=== PATIENT | male | born 1935 | race Caucasian/White ===

== ENCOUNTER 2021-08-15 15:22 | Emergency (ER) | payer MEDICARE, OTHER ==
[~2021-08-15] VITALS: Ht 188 cm; Wt 90.7 kg
--- NOTE | 2021-08-15 15:30 | NUR ---
PT BIBS C/O FOREHEAD LACERATION S/P GLF AT HOME "GOT DIZZY FROM STANDING UP TOO FAST", -LOC, DENIES PAIN, NOT ON ANY BLOOD THINNERS. NO ACTIVE BLEEDING AT THIS TIME. PT A/OX4. TOLERATING R/A WELL WITH NO SOB.
--- NOTE | 2021-08-15 15:31 | NUR ---
NO ABNORMAL EXTERNAL ROTATION, SHORTENING OF EXTREMITITES NOTED.
[2021-08-15] MEDS ORDERED: LIDOCAINE 0.5%-EPI 1:200,000 50 ML VIAL ONE (15:52)
--- NOTE | 2021-08-15 15:57 | NUR ---
PT TAKEN TO CT VIA PRIYANK
[2021-08-15] MEDS ORDERED: TDAP [DIPH/PERTUSSIS/TET] 0.5 ML VIAL IM ONE ×2 (16:00→16:07)
--- NOTE | 2021-08-15 16:04 | NUR ---
PT RETURNED TO ER BED [address] PRIYANK
--- NOTE | 2021-08-15 17:10 | NUR ---
LAW OLEA AT PT'S BEDSIDE DOING WOUND CARE
[2021-08-15 18:00] VITALS: BP 152/86
--- NOTE | 2021-08-15 18:00 | NUR ---
Patient discharged to home in stable condition. Written and verbal after care instructions given. Patient verbalizes understanding of instruction.
== END 2021-08-15 18:00 | disposition home or self-care (01) ==
LOC: ER 15:30
DX: S01.81XA Laceration without foreign body of other part of head, initial encounter (principal); S01.01XA Laceration without foreign body of scalp, initial encounter; Z90.49 Acquired absence of other specified parts of digestive tract; W19.XXXA Unspecified fall, initial encounter; Y93.89 Activity, other specified; Y92.89 Other specified places as the place of occurrence of the external cause; Y99.8 Other external cause status
CPT/HCPCS: 12002; 12013; 70450; 72125; 90471; 90715; 99284; A6403; J3490

== ENCOUNTER 2022-06-17 12:38 | Inpatient (IN) | payer MEDICARE, OTHER ==
[~2022-06-17] VITALS: Ht 172.7 cm; Wt 91.6 kg
--- NOTE | 2022-06-17 12:50 | NUR ---
C/O LOWER BACK PAIN,GLF 2 DAYS AGO
--- NOTE | 2022-06-17 13:10 | NUR ---
pt taken to ct via bridget
[2022-06-17] MEDS ORDERED: HYDROCODONE/APAP 5/325MG TABLET PO ONE (13:30)
--- NOTE | 2022-06-17 13:30 | NUR ---
tech at bed side for ekg
--- NOTE | 2022-06-17 13:30 | NUR ---
established iv line at left forearm 20g infusing ,
--- NOTE | 2022-06-17 13:31 | NUR ---
blood sample obtained sent to lab .
--- NOTE | 2022-06-17 13:32 | NUR ---
PLACED ON O2 VIA NASAL CANULA AT 3L/MIN SATURATING 95%
[2022-06-17] MEDS ORDERED: HYDROCODONE/APAP 5/325MG TABLET ONE (13:51)
[2022-06-17 13:59] LABS: BASOPHILS % (AUTO) 0.4 % (0.0-2.0); EOSINOPHILS % (AUTO) 0.3 % (0.0-6.0); HEMATOCRIT 26 % (39-51); HEMOGLOBIN 8.7 g/dL (13.5-17.5); LYMPHOCYTES # (AUTO) 0.9 K/uL (0.8-4.8); LYMPHOCYTES % (AUTO) 15.3 % (20.0-44.0); MEAN CORPUSCULAR HGB CONC 34 g/dl (31.0-36.0); MEAN CORPUSCULAR VOLUME 113 fL (80-96); MONOCYTES % (AUTO) 18.4 % (2.0-12.0); NEUTROPHILS # (AUTO) 3.7 K/uL (1.8-8.9); NEUTROPHILS % (AUTO) 65.6 % (43.0-81.0); PLATELET COUNT (AUTO) 98 K/uL (150-450); RED BLOOD CELL COUNT(AUTO) 2.27 MIL/uL (4.5-6.0); WHITE BLOOD COUNT (AUTO) 5.7 K/uL (4.3-11.0)
[2022-06-17 14:11] LABS: CALCIUM, SERUM 8.3 mg/dL (8.5-10.1); CARBON DIOXIDE 27 mmol/L (21-32); CHLORIDE 104 mmol/L (98-107); CREATININE 1.4 mg/dL (0.6-1.3); GLUCOSE 92 mg/dL (74-106); POTASSIUM 3.6 mmol/L (3.5-5.1); SODIUM SERUM 139 mmol/L (136-145); UREA NITROGEN, BLOOD 25 mg/dL (7-18)
--- NOTE | 2022-06-17 14:25 | NUR ---
TROPONIN LEVEL = 401 REPORTED TO
--- NOTE | 2022-06-17 14:33 | NUR ---
DR. MARCIAL SPEAKING WITH DR. WELLS.
--- NOTE | 2022-06-17 15:04 | NUR ---
COVID SWAB TAKEN SENT TO LAB
[2022-06-17] MEDS ORDERED: ASPI-1169 PO (15:05)
[2022-06-17] MEDS ORDERED: ATOR20TA PO (15:05)
[2022-06-17] MEDS ORDERED: FERR325T23 PO (15:05)
[2022-06-17] MEDS ORDERED: OMEP-99 PO (15:05)
[2022-06-17] MEDS ORDERED: PRED5TAB PO (15:05)
[2022-06-17] MEDS ORDERED: IRBE150T28 PO (15:05)
[2022-06-17] MEDS ORDERED: TRIA1TAB3 PO (15:05)
[2022-06-17 16:16] LABS: BAND % (MANUAL) 4 % (0.0-5.0); LYMPHOCYTES % (MANUAL) 17 % (16-48); MONOCYTES % (MANUAL) 9 % (0-11.0); NEUTROPHILS % (MANUAL) 70 (42-76)
--- NOTE | 2022-06-17 16:20 | NUR ---
GOT BED 308-1
--- NOTE | 2022-06-17 17:08 | NUR ---
PT REPORT GIVEN TO THALIA RAMOS
--- NOTE | 2022-06-17 18:17 | NUR ---
CANCEL TRANSFER TO 308
[2022-06-17] MEDS ORDERED: ONDANSETRON HCL/PF 4 MG/2 ML VIAL IVP PRN (18:30)
[2022-06-17] MEDS ORDERED: MAGNESIUM HYDROXIDE 30 ML UDC PO PRN (18:30)
[2022-06-17] MEDS ORDERED: MAG HYDROX/AL HYDROX/SIMETH 30 ML UDC PO PRN (18:30)
[2022-06-17] MEDS ORDERED: ACETAMINOPHEN 325 MG TABLET PO PRN (18:30)
[2022-06-17] MEDS ORDERED: Z GUARD REMEDY 4 OZ OINT TP PRN (18:30)
[2022-06-17] MEDS ORDERED: ZOLPIDEM TARTRATE 5 MG TABLET PO PRN (18:30)
[2022-06-17] MEDS ORDERED: HYDROCODONE/APAP 5/325MG TABLET PO PRN (18:30)
--- NOTE | 2022-06-17 19:30 | NUR ---
REPORT RECEIVED FROM THALIA PERSAUD. PATIENT CAME EARLIER WITH CC OF GLF AND SUSTAINED LUMBAR FRACTURE. PATIENT IS AAOX4. ABLE TO MAKE NEEDS KNOWN. COMPLAINING OF BACK PAIN SCALE OF 10/10. PT HAS OXYGEN CANNULA AT 3LPM SATS 98%. WITH IV CANNULA G20 ON LEFT FA. PT IS ATTACHED TO MONITOR. VITALS CHECKED.
--- NOTE | 2022-06-17 20:39 | NUR ---
CRITICAL TROP 318
[2022-06-17] MEDS: MORPHINE SULFATE INJ 2 MG/ML DISP.SYRIN IV PRN (20:49)
--- NOTE | 2022-06-17 20:50 | NUR ---
PT COMPLAINING OF BACK PAIN SCALE OF 10/10. MORPHINE PRN GIVEN IV PUSH.
--- NOTE | 2022-06-17 21:43 | NUR ---
RE ASSESSMENT DONE. NO PAIN AT THE MOMENT. NEEDS ATTENDED.
--- NOTE | 2022-06-18 04:50 | NUR ---
PERINEAL CARE DONE.
[2022-06-18 05:43] LABS: BASOPHILS % (AUTO) 0.4 % (0.0-2.0); EOSINOPHILS % (AUTO) 0.3 % (0.0-6.0); HEMATOCRIT 27 % (39-51); HEMOGLOBIN 9.2 g/dL (13.5-17.5); LYMPHOCYTES # (AUTO) 0.7 K/uL (0.8-4.8); LYMPHOCYTES % (AUTO) 9.6 % (20.0-44.0); MEAN CORPUSCULAR HGB CONC 34 g/dl (31.0-36.0); MEAN CORPUSCULAR VOLUME 112 fL (80-96); MONOCYTES # (AUTO) 0.7 K/uL (0.1-1.30); MONOCYTES % (AUTO) 10.5 % (2.0-12.0); NEUTROPHILS # (AUTO) 5.5 K/uL (1.8-8.9); NEUTROPHILS % (AUTO) 79.2 % (43.0-81.0); PLATELET COUNT (AUTO) 88 K/uL (150-450); RED BLOOD CELL COUNT(AUTO) 2.41 MIL/uL (4.5-6.0)
[2022-06-18 05:54] LABS: CALCIUM, SERUM 8.5 mg/dL (8.5-10.1); CREATININE 1.2 mg/dL (0.6-1.3); MAGNESIUM 1.8 mg/dL (1.8-2.4); PHOSPHORUS 2.5 mg/dL (2.5-4.9); POTASSIUM 3.5 mmol/L (3.5-5.1)
[2022-06-18 05:58] LABS: THYROID STIMULATING HORMONE 4.642 uIU/mL (0.358-3.74)
--- NOTE | 2022-06-18 07:47 | NUR ---
report given to Emily VÁSQUEZ to continue care.
[2022-06-18 08:00] VITALS: BP 143/84
[2022-06-18] MEDS: predniSONE 5 MG TABLET PO SCH (08:58)
[2022-06-18] MEDS: FERROUS SULFATE (325 MG) 325 MG/TAB TABLET PO SCH (08:58)
[2022-06-18] MEDS: ASPIRIN 81 MG TAB.CHEW PO SCH (08:58)
[2022-06-18] MEDS: PANTOPRAZOLE 40 MG TABLET.DR PO SCH (08:59)
[2022-06-18] MEDS ORDERED: ATORVASTATIN 10 MG TABLET PO SCH ×2 (09:00→22:00)
[2022-06-18] MEDS ORDERED: ASPIRIN 81 MG TAB.CHEW PO SCH (09:00)
--- NOTE | 2022-06-18 09:14 | NUR ---
wheeled patient via gurney accompanied by RN and emt in no distress. RN assigned at [facility] to assume care.
--- NOTE | 2022-06-18 09:30 | NUR ---
RN NOTE RECEIVED PATIENT FOR COLEEN. IN STABLE CONDITION
[2022-06-18] MEDS: IV 1/2NS 1000 ML 1,000 ML IV PRN ×2 (10:48→21:24)
[2022-06-18 12:00] VITALS: BP 149/72
[2022-06-18 12:56] LABS: BAND % (MANUAL) 14 % (0.0-5.0); EOSINOPHILS % (MANUAL) 1 % (0-4); LYMPHOCYTES % (MANUAL) 15 % (16-48); MONOCYTES % (MANUAL) 6 % (0-11.0); NEUTROPHILS % (MANUAL) 64 (42-76)
[2022-06-18 16:00] VITALS: BP 111/64
--- NOTE | 2022-06-18 18:49 | NUR ---
RN CLOSING NOTE PATIENT IN BED A/O X4 ABLE TO MAKE NEEDS KNOWN . ON 2L VIA NC. TOLERATING WELL, NO S/S OF ACUTE DISTRESS. TELE MONITOR. WITH JUNIOR MIDLINE PATENT FLUSHES WELL. ALL SAFETY MEASURES IN PLACE, BED ALARM ON, BED IN LOW LOCK POSITION, CALL LIGHT AND TABLE WITHIN EASY REACH, SIDE RAILS UP X2. WILL ENDORSE TO APPLE TURNER FOR COLEEN.
--- NOTE | 2022-06-18 18:52 | NUR ---
RN NOTE RECEIVED TROPONIN LEVE 356 PATIENTS PREVIOUS LEVEL 401. LEVEL TRENDING DOWN INFOMRED CHARGE NURSE. CARDIO ON CASE
--- NOTE | 2022-06-18 19:30 | NUR ---
RN OPENING NOTE RECEIVED PATIENT IN BED, A/O X4, ABLE TO MAKE NEEDS KNOWN . ON O2 2L VIA NC TOLERATING WELL, NO S/SX OF ACUTE RESPI DISTRESS NOTED AT THIS TIME. TELE MONITOR SHOWS SR WITH HR OF 70s. IV ACCESS IN R HAND #22g, INTACT AND PATENT, FLUSHES WELL. CURRENTLY INFUSING 0.45 NS @ 125 CC/HR. ALL SAFETY MEASURES IN PLACE: BED ALARM ON, BED IN LOW, LOCKED POSITION, CALL LIGHT AND TABLE WITHIN EASY REACH, SIDE RAILS UP X2. WILL CONTINUE TO MONITOR PT.
[2022-06-18 20:00] VITALS: BP 134/56
[2022-06-18] MEDS: MORPHINE SULFATE INJ 2 MG/ML DISP.SYRIN IV PRN ×2 (21:19→21:40)
--- NOTE | 2022-06-18 21:40 | NUR ---
RN NOTE PT ASKED FOR MORPHINE TO HELP WITH HIS PAIN. WHEN I'M ABOUT TO ADMINISTER, PT CHANGED HIS MIND AND ASKED FOR NORCO INSTEAD. INFORMED CHARGE NURSE SIMEON ABOUT IT SINCE THE MORPHINE WAS ALREADY DISPENSED FROM THE VIAL, WE WASTED THE MORPHINE TOGETHER WITH AXEL HENDRIX WITNESS AND PULLED OUT NORCO FOR PT INSTEAD. WILL REASSESS PT IN AN HOUR.
[2022-06-19] VITALS: BP 127/62
[2022-06-19 04:00] VITALS: BP 116/74
[2022-06-19] MEDS: IV 1/2NS 1000 ML 1,000 ML IV PRN (05:06)
--- NOTE | 2022-06-19 05:45 | NUR ---
RN NOTE NO SIGNIFICANT CHANGES T/O THE NIGHT. PT COMPLAINED OF PAIN FROM WHERE HE HIT THE GROUND, ALSO COMPLAINED OF BEING GASSY. PAIN MEDS GIVEN. TURNED AND REPOSITIONED WHICH MIGHT HELP PASS GAS. PM CARE DONE. DUE MEDS GIVEN. WILL ENDORSE TO AM SHIFT NURSE FOR COLEEN.
--- NOTE | 2022-06-19 07:11 | NUR ---
RN OPENING NOTE RECEIVED PATIENT IN BED, A/O X4, ABLE TO MAKE NEEDS KNOWN . ON O2 2L VIA NC TOLERATING WELL, NO S/SX OF ACUTE RESPI DISTRESS NOTED AT THIS TIME. TELE MONITOR. IV ACCESS IN R HAND #22g, INTACT AND PATENT, FLUSHES WELL. CURRENTLY INFUSING 0.45 NS @ 125 CC/HR. ALL SAFETY MEASURES IN PLACE: BED ALARM ON, BED IN LOW, LOCKED POSITION, CALL LIGHT AND TABLE WITHIN EASY REACH, SIDE RAILS UP X2.
[2022-06-19 07:27] LABS: CARBON DIOXIDE 25 mmol/L (21-32); CHLORIDE 105 mmol/L (98-107); CREATININE 1.2 mg/dL (0.6-1.3); GLUCOSE 89 mg/dL (74-106); POTASSIUM 3.8 mmol/L (3.5-5.1); SODIUM SERUM 137 mmol/L (136-145); UREA NITROGEN, BLOOD 21 mg/dL (7-18)
--- NOTE | 2022-06-19 07:49 | NUR ---
THALIA NOTE RECIEVED TROPONIN LELVE 258 PREVOUSLY 356. TRENDING DOWN Addendum: 06/19/22 at 0750 by BRIELLE LANTIGAU RN LEVEL
[2022-06-19 08:00] VITALS: BP 168/79
[2022-06-19] MEDS: predniSONE 5 MG TABLET PO SCH (09:19)
[2022-06-19] MEDS: FERROUS SULFATE (325 MG) 325 MG/TAB TABLET PO SCH (09:19)
[2022-06-19] MEDS: ASPIRIN 81 MG TAB.CHEW PO SCH (09:19)
[2022-06-19] MEDS: PANTOPRAZOLE 40 MG TABLET.DR PO SCH (09:20)
--- NOTE | 2022-06-19 09:44 | NUR ---
WOUND CARE CONSULT: PT HAVING PROCEDURE AT THIS TIME. 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 PT DENIES NEED FOR SURGICAL CONSULT AND WILL FOLLOW UP WITH HIS PLASTIC SURGEON. RECOMMENDATIONS MADE FOR SKIN PROTECTION AND DISCUSSED WITH NURSING STAFF. MD IN AGREEMENT WITH PLAN OF CARE. Addendum: 06/19/22 at 1000 by CAMILLE DE LA ROSA WNDNU PT SEEN FOR SKIN ASSESSMENT AND NOTED TO HAVE BLANCHABLE REDNESS TO SACRAL/BUTTOCKS AREA. DISCUSSED IMPORTANCE OF OFFLOADING AND REPOSITIONING WITH PT AND NURSING STAFF. PT STATES UNDERSTANDS AND IS WILLING TO COMPLY. HEELS FLOATED ON PILLOW. PT IS CONTINENT. IN AGREEMENT WITH PLAN OF CARE.
[2022-06-19] MEDS ORDERED: NEOMY SULF/BACITRAC ZN/POLY 15 GM TUBE TP SCH (10:00)
[2022-06-19 10:26] LABS: BASOPHILS # (AUTO) 0.1 K/uL (0.0-0.2); BASOPHILS % (AUTO) 1.3 % (0.0-2.0); EOSINOPHILS % (AUTO) 0.6 % (0.0-6.0); HEMATOCRIT 26 % (39-51); HEMOGLOBIN 8.6 g/dL (13.5-17.5); LYMPHOCYTES % (AUTO) 18.5 % (20.0-44.0); MEAN CORPUSCULAR HGB CONC 34 g/dl (31.0-36.0); MEAN CORPUSCULAR VOLUME 113 fL (80-96); MONOCYTES # (AUTO) 0.8 K/uL (0.1-1.30); MONOCYTES % (AUTO) 15.3 % (2.0-12.0); NEUTROPHILS # (AUTO) 3.4 K/uL (1.8-8.9); NEUTROPHILS % (AUTO) 64.3 % (43.0-81.0); PLATELET COUNT (AUTO) 145 K/uL (150-450); RED BLOOD CELL COUNT(AUTO) 2.25 MIL/uL (4.5-6.0); WHITE BLOOD COUNT (AUTO) 5.3 K/uL (4.3-11.0)
--- NOTE | 2022-06-19 11:07 | NUR ---
RN NOTE RECEIVED ORDERS FROM DR MARCIAL TO GIVE PATENT METOPROLOL 25MG PO ONE TIME, PLACE ORDER FOR METOPROLOL 5MG IV EVERY 10 MIN TO REDUCE HR TO BELOW 70. PO DOSE WAS GIVE IV DOSE WILL BE GIVEN AT TIME OF CTA.
[2022-06-19 11:14] LABS: BAND % (MANUAL) 15 % (0.0-5.0); LYMPHOCYTES % (MANUAL) 16 % (16-48); MONOCYTES % (MANUAL) 19 % (0-11.0); NEUTROPHILS % (MANUAL) 47 (42-76)
[2022-06-19 11:15] LABS: METAMYELOCYTES % 1 % (0-0); MYELOCYTES % 2 % (0-0)
[2022-06-19] MEDS ORDERED: METOPROLOL TARTRATE INJ 5 MG/5 ML AMPUL IVP PRN (11:30)
[2022-06-19] MEDS ORDERED: METOPROLOL TARTRATE 25 MG TABLET PO ONE (11:30)
[2022-06-19] MEDS ORDERED: IOHEXOL-350 100 ML VIAL IV ONE (11:54)
[2022-06-19] MEDS ORDERED: NITROGLYCERIN 0.4 MG/TAB BOTTLE ONE (11:54)
[2022-06-19] MEDS ORDERED: METOPROLOL TARTRATE INJ 5 MG/5 ML AMPUL ONE ×3 (11:54→12:56)
[2022-06-19] MEDS ORDERED: IV NS 0.9% 250 ML IV ONE (11:55)
[2022-06-19] MEDS ORDERED: CT SWABBABLE VALVE TRANS SET 1 EA INFUS.SET MC ONE (11:55)
[2022-06-19 12:00] VITALS: BP 163/78
[2022-06-19] MEDS: METOPROLOL TARTRATE INJ 5 MG/5 ML AMPUL IVP PRN ×10 (12:40→13:20)
[2022-06-19] MEDS ORDERED: IV NS 0.9% 500 ML IV PRN ×2 (13:30→14:00)
[2022-06-19] MEDS ORDERED: METOPROLOL TARTRATE INJ 5 MG/5 ML AMPUL IVP ONE (13:30)
[2022-06-19] MEDS ORDERED: NITROGLYCERIN 0.4 MG/TAB BOTTLE SL ONE ×2 (13:30→14:00)
--- NOTE | 2022-06-19 14:05 | NUR ---
PT NICOLE PROCEDURE WELL. REPORT GIVEN TO HALLIE VÁSQUEZ ISAIAS
--- NOTE | 2022-06-19 15:23 | NUR ---
RN NOTE RECEIVED VERBAL ORDER FROM ANUEL JOHNSON DNP TO DC 1/2NS IV FLUIDS. ORDERS PLACED
[2022-06-19 16:00] VITALS: BP 134/65
[2022-06-19] MEDS ORDERED: HYDR-3972 PO (17:55)
--- NOTE | 2022-06-19 18:54 | NUR ---
RN NOTE D/C INSTRUCTIONS REVIEWED WITH PATIENT. BILLET BED OPERATOR FROM FROM [facility] LEFT IN STABLE CONDITION
== END 2022-06-19 18:43 | disposition home or self-care (01) | DRG 542 ==
LOC: ER 12:38 → MED 16:46 → TRANSITION 18:23 → TELE1 06-18 07:51
PROVIDERS: ADMIT Student in an Organized Health Care Education/Training Program; ATTEND Nurse Practitioner Acute Care
DX: M48.56XA Collapsed vertebra, not elsewhere classified, lumbar region, initial encounter for fracture (principal); I21.4 Non-ST elevation (NSTEMI) myocardial infarction; N17.0 Acute kidney failure with tubular necrosis; D69.6 Thrombocytopenia, unspecified; E86.0 Dehydration; Z20.822 Contact with and (suspected) exposure to COVID-19; Z90.49 Acquired absence of other specified parts of digestive tract; W19.XXXA Unspecified fall, initial encounter; Y92.9 Unspecified place or not applicable; M47.816 Spondylosis without myelopathy or radiculopathy, lumbar region; M51.36 Other intervertebral disc degeneration, lumbar region; I10 Essential (primary) hypertension; D63.8 Anemia in other chronic diseases classified elsewhere; D53.9 Nutritional anemia, unspecified; E03.8 Other specified hypothyroidism; F32.A Depression, unspecified; M41.9 Scoliosis, unspecified
CPT/HCPCS: 36415; 71045-TC; 72131-TC; 75574; 80048-TC; 83735-TC; 84100-TC; 84439-TC; 84443-TC; 84484-TC; 85025-TC; 87081-TC; 93307-TC; A6403; C9803; G0378; J2270; J3490; J7050; J7512; Q9967

== ENCOUNTER 2022-07-20 21:56 | Inpatient (IN) | payer MEDICARE, OTHER ==
[~2022-07-20] VITALS: Ht 188 cm; Wt 92.1 kg
[~2022-07-20 21:56] MED LIST: ASPI-1169 PO; ATOR20TA PO; FERR325T23 PO; HYDR-3972 PO; IRBE150T28 PO; OMEP-99 PO; PRED5TAB PO; TRIA1TAB3 PO
--- NOTE | 2022-07-20 22:15 | NUR ---
[id number] FROM HOME C/O SWELLING ON FACE AND FEELING WEAK X 1 DAY. PLACED ON BED, AAOX4, BREATHING EVEN AND UNLABORED.
[2022-07-20] MEDS ORDERED: CEFEPIME 1 GM in IV D5W 50 ML IV ONE (22:30)
[2022-07-20] MEDS ORDERED: VANCOMYCIN 1 GM in IV D5W 250 ML IV ONE (22:30)
[2022-07-20] MEDS ORDERED: IV NS 0.9% 1,000 ML BAG IV ONE (22:30)
--- NOTE | 2022-07-20 22:50 | NUR ---
BLOOD DRAWN AND SENT TO LAB
[2022-07-20] MEDS ORDERED: VANCOMYCIN 1 GM VIAL ONE (22:54)
[2022-07-20] MEDS ORDERED: CEFEPIME 1 GM VIAL ONE (22:54)
[2022-07-20] MEDS ORDERED: IOHEXOL-300 100 ML VIAL IV ONE (23:30)
[2022-07-20 23:37] LABS: BASOPHILS % (AUTO) 0.1 % (0.0-2.0); EOSINOPHILS % (AUTO) 0.1 % (0.0-6.0); HEMATOCRIT 24 % (39-51); LYMPHOCYTES # (AUTO) 0.6 K/uL (0.8-4.8); LYMPHOCYTES % (AUTO) 12.7 % (20.0-44.0); MEAN CORPUSCULAR HGB CONC 34 g/dl (31.0-36.0); MEAN CORPUSCULAR VOLUME 106 fL (80-96); MONOCYTES # (AUTO) 0.9 K/uL (0.1-1.30); MONOCYTES % (AUTO) 18.8 % (2.0-12.0); NEUTROPHILS # (AUTO) 3.4 K/uL (1.8-8.9); NEUTROPHILS % (AUTO) 68.3 % (43.0-81.0); PLATELET COUNT (AUTO) 85 K/uL (150-450); RED BLOOD CELL COUNT(AUTO) 2.23 MIL/uL (4.5-6.0)
--- NOTE | 2022-07-21 | NUR ---
PT TAKEN TO CT SCAN VIA PRIYANK
[2022-07-21] MEDS ORDERED: IOHEXOL-300 100 ML VIAL IV ONE (00:07)
[2022-07-21] MEDS ORDERED: IV NS 0.9% 250 ML IV ONE (00:07)
--- NOTE | 2022-07-21 00:15 | NUR ---
TROP 200, AWARE
--- NOTE | 2022-07-21 00:52 | NUR ---
COVID SWAB COLLECTED
[2022-07-21 01:23] LABS: CARBON DIOXIDE 26 mmol/L (21-32); CHLORIDE 102 mmol/L (98-107); CREATININE 1.5 mg/dL (0.6-1.3); GLUCOSE 97 mg/dL (74-106); POTASSIUM 3.5 mmol/L (3.5-5.1); SODIUM SERUM 137 mmol/L (136-145); UREA NITROGEN, BLOOD 22 mg/dL (7-18)
[2022-07-21 01:25] LABS: LYMPHOCYTES % (MANUAL) 10 % (16-48); MONOCYTES % (MANUAL) 17 % (0-11.0); NEUTROPHILS % (MANUAL) 73 (42-76)
[2022-07-21 01:29] LABS: ALANINE AMINOTRANSFERASE 13 U/L (12-78); ALBUMIN 2.4 g/dL (3.4-5.0); ALKALINE PHOSPHATASE 77 U/L (46-116); ASPARTATE AMINOTRANSFERASE 14 U/L (15-37); BILIRUBIN,DIRECT 0.4 mg/dL (0.0-0.2); BILIRUBIN,TOTAL 1.3 mg/dL (0.2-1.0); TOTAL PROTEIN, SERUM 7.9 g/dL (6.4-8.2)
[2022-07-21] MEDS ORDERED: HYDROCODONE/APAP 5/325MG TABLET PO PRN (02:00)
[2022-07-21] MEDS ORDERED: MAGNESIUM HYDROXIDE 30 ML UDC PO PRN (02:00)
[2022-07-21] MEDS ORDERED: HYDROMORPHONE INJ 2 MG/ML DISP.SYRIN IV PRN (02:00)
[2022-07-21] MEDS ORDERED: ONDANSETRON HCL/PF 4 MG/2 ML VIAL IVP PRN (02:00)
[2022-07-21] MEDS ORDERED: Z GUARD REMEDY 4 OZ OINT TP PRN (02:00)
[2022-07-21] MEDS ORDERED: ACETAMINOPHEN 325 MG TABLET PO PRN (02:00)
[2022-07-21] MEDS ORDERED: MAG HYDROX/AL HYDROX/SIMETH 30 ML UDC PO PRN (02:00)
[2022-07-21 02:56] LABS: BILIRUBIN,URINE NEGATIVE (NEGATIVE); COLOR,URINE YELLOW (YELLOW); LEUKOCYTE ESTERASE ,URINE NEGATIVE (NEGATIVE); NITRITE, URINE NEGATIVE (NEGATIVE); PH,URINE 6.5 (5.0-8.0); PROTEIN,URINE 2+ mg/dl (NEGATIVE); UGLUCOSE NEGATIVE (NEGATIVE)
[2022-07-21 03:04] LABS: RBC,URINE 51-80 /HPF (0-2)
[2022-07-21 03:05] LABS: BACTERIA,URINE Rare /HPF (None Seen); SQUAMOUS EPITHELIAL CELL,UR Few /HPF (None Seen); WBC,URINE 0-2 /HPF (0-3)
--- NOTE | 2022-07-21 04:21 | NUR ---
MRSA SWAB SENT TO LAB
--- NOTE | 2022-07-21 08:58 | NUR ---
TROPONIN 125, DOC MADE AWARE
[2022-07-21] MEDS ORDERED: MAXZIDE TABLET 1 UDTAB TABLET PO SCH (09:00)
[2022-07-21] MEDS: ATORVASTATIN 10 MG TABLET PO SCH (10:15)
[2022-07-21] MEDS: PANTOPRAZOLE 40 MG TABLET.DR PO SCH (10:15)
[2022-07-21] MEDS ORDERED: FERROUS SULFATE (325 MG) 325 MG/TAB TABLET ONE (10:28)
[2022-07-21] MEDS ORDERED: ATORVASTATIN 10 MG TABLET ONE (10:28)
[2022-07-21] MEDS ORDERED: PANTOPRAZOLE 40 MG TABLET.DR PO ONE (10:29)
[2022-07-21] MEDS ORDERED: ASPIRIN 81 MG TAB.CHEW ONE (10:29)
[2022-07-21] MEDS: FERROUS SULFATE (325 MG) 325 MG/TAB TABLET PO SCH (10:30)
[2022-07-21] MEDS: ASPIRIN 81 MG TAB.CHEW PO SCH (10:30)
[2022-07-21] MEDS ORDERED: METO25TA4 PO (10:39)
[2022-07-21] MEDS ORDERED: TRAM50TA2 PO (10:39)
--- NOTE | 2022-07-21 10:44 | NUR ---
medicated as ordered
[2022-07-21] MEDS: METOPROLOL SUCCINATE 25 MG TAB.SR.24H PO SCH (13:30)
[2022-07-21] MEDS ORDERED: METOPROLOL SUCCINATE 25 MG TAB.SR.24H ONE (13:34)
--- NOTE | 2022-07-21 20:04 | NUR ---
REPORT GIVEN TO THANIA RN ROOM 326-1 FOR COLEEN
[2022-07-21 20:30] VITALS: BP 174/72
--- NOTE | 2022-07-21 20:30 | NUR ---
GRADE RECORDER ADMITTING NOTE PATIENT ARRIVED AT THE UNIT FROM ER AT 2030. PATIENT WAS ON GURNEY. UPON ARRIVAL,PATIENT'S VITAL SIGNS WERE TAKEN THE FOLLOWING: BP IS 174/72, TEMPERATURE IS 98.2 F, HR IS 88, RR IS 18, O2 SAT IS 98 % WITH 1 LPM OXYGEN VIA NC. PATIENT HAS IV ACCESS AT HIS RIGHT WRIST, #20G,PATENT AND INTACT. PATIENT DENIES OF HAVING PAIN. PATIENT HAS A SURGICAL INCISION ON HIS NOSE TIP, PICTURES WERE TAKEN AND BEING PUT IN THE PATIENT'S CHART. PATIENT IS ON EXTERNAL TELE MONITOR, SHOWING HIS HEART RHYTHM IS SR WITH SOME BBBs. ORIENTED THE PATIENT WITH SURROUNDINGS, HOW TO USE THE CALL CONNER. SAFETY MEASURES ARE IN PLACE: BED IS IN THE LOWEST POSITION, LOCKED; CALL CONNER AND THE TABLE ARE IN REACH; SIDE RAILS UP X 2. WILL CONTINUE MONITOR THE PATIENT AND PROVIDE THE CARE PATIENT NEEDS.
[2022-07-21] MEDS ORDERED: ZOLPIDEM TARTRATE 5 MG TABLET PO PRN (22:00)
[2022-07-21] MEDS ORDERED: CEFEPIME 1 GM VIAL ONE (22:27)
[2022-07-21] MEDS: CEFEPIME 1 GM in IV D5W 50 ML IV SCH (22:40)
[2022-07-21] MEDS ORDERED: VANCOMYCIN 1 GM VIAL ONE (23:58)
[2022-07-22] MEDS ORDERED: VANCOMYCIN 1 GM in IV D5W 250 ML IV ONE ×2
[2022-07-22] MEDS ORDERED: VANCOMYCIN 1.25 GM in IV D5W 250 ML IV SCH ×2
[2022-07-22 00:56] VITALS: BP 155/72
[2022-07-22] MEDS: IV NS 0.9% 1,000 ML IV PRN ×2 (03:48→18:35)
--- NOTE | 2022-07-22 04:00 | NUR ---
TENTERING MACHINE FEEDER NOTE PATIENT COMPLAIN OF HAVING GENERALIZED BODY ACHE AND REQUESTED TO HAVE TYLENOL FOR THE PAIN. 11/18. ON A 0 TO 10 PAIN SCALE. PRN MEDICATION TYLENOL 650 MG PO WAS GIVEN.
[2022-07-22 04:54] VITALS: BP 151/63
[2022-07-22 07:10] LABS: BASOPHILS % (AUTO) 0.2 % (0.0-2.0); CALCIUM, SERUM 6.7 mg/dL (8.5-10.1); CARBON DIOXIDE 25 mmol/L (21-32); CHLORIDE 104 mmol/L (98-107); CREATININE 1.4 mg/dL (0.6-1.3); EOSINOPHILS % (AUTO) 0.8 % (0.0-6.0); GLUCOSE 98 mg/dL (74-106); HEMATOCRIT 22 % (39-51); HEMOGLOBIN 7.5 g/dL (13.5-17.5); LYMPHOCYTES # (AUTO) 0.7 K/uL (0.8-4.8); LYMPHOCYTES % (AUTO) 17.2 % (20.0-44.0); MAGNESIUM 1.5 mg/dL (1.8-2.4); MEAN CORPUSCULAR HGB CONC 35 g/dl (31.0-36.0); MEAN CORPUSCULAR VOLUME 105 fL (80-96); MONOCYTES # (AUTO) 0.7 K/uL (0.1-1.30); NEUTROPHILS # (AUTO) 2.4 K/uL (1.8-8.9); NEUTROPHILS % (AUTO) 62.8 % (43.0-81.0); PHOSPHORUS 2.5 mg/dL (2.5-4.9); PLATELET COUNT (AUTO) 92 K/uL (150-450); POTASSIUM 3.1 mmol/L (3.5-5.1); RED BLOOD CELL COUNT(AUTO) 2.06 MIL/uL (4.5-6.0); SODIUM SERUM 138 mmol/L (136-145); UREA NITROGEN, BLOOD 18 mg/dL (7-18); WHITE BLOOD COUNT (AUTO) 3.8 K/uL (4.3-11.0)
--- NOTE | 2022-07-22 07:23 | NUR ---
RN OPENING NOTE RECEIVED PATIENT IN BED, AWAKE, A/O X4, VERBALLY RESPONSIVE, NO SIGNS OF ACUTE DISTRESS NOTED. ON O2 @1LPM VIA N/C, NO SOB NOTED, BREATHING EVEN AND UNLABORED. NOTED WITH IV ACCESS ON RIGHT WRIST #20G, INTACT AND PATENT, WITH NS @ 100ML/HR INFUSING WELL. DENIES ANY PAIN AT THIS TIME. ON TELE MONITOR CURRENTLY SHOWING SINUS RHYTHM, HR @ 78. NO CARDIAC DISTRESS NOTED. SAFETY MEASURE IN PLACE. BED IN LOWEST AND LOCKED POSITION, SIDE RAILS UP X2, CALL LIGHT PLACED WITHIN EASY REACH. WILL CONTINUE TO MONITOR PATIENT.
--- NOTE | 2022-07-22 07:42 | NUR ---
REGIONAL MARKETING DIRECTOR CLOSING NOTE PATIENT IS SITTING IN BED, AWAKE AO X 4. HE IS ON 1 LPM OXYGEN VIA NC; AND HIS O2 SAT IS 98 % . NO S/S SOB OR DISTRESS. PATIENT HAS IV ACCESS AT HIS RIGHT WRIST, #20G, PATENT AND INTACT; RUNNING WITH NS @100 ML / HR. PATIENT DENIES OF HAVING PAIN. PATIENT IS ON EXTERNAL TELE MONITOR, SHOWING HIS HEART RHYTHM IS SR WITH SOME BBBs. SAFETY MEASURES ARE IN PLACE: BED IS IN THE LOWEST POSITION, LOCKED; CALL CONNER AND THE TABLE ARE IN REACH; SIDE RAILS UP X 2. WILL ENDORSE NEXT SHIFT NURSE FOR CONTINUING PATIENT CARE.
[2022-07-22 08:00] VITALS: BP 153/69
[2022-07-22] MEDS: PANTOPRAZOLE 40 MG TABLET.DR PO SCH (08:54)
[2022-07-22] MEDS: ASPIRIN 81 MG TAB.CHEW PO SCH (08:54)
[2022-07-22] MEDS: FERROUS SULFATE (325 MG) 325 MG/TAB TABLET PO SCH (08:54)
[2022-07-22] MEDS: ATORVASTATIN 10 MG TABLET PO SCH (08:54)
[2022-07-22] MEDS: LOSARTAN POTASSIUM 50 MG TABLET PO SCH (08:55)
[2022-07-22 09:01] LABS: BAND % (MANUAL) 2 % (0.0-5.0); LYMPHOCYTES % (MANUAL) 20 % (16-48); MONOCYTES % (MANUAL) 14 % (0-11.0); NEUTROPHILS % (MANUAL) 64 (42-76)
--- NOTE | 2022-07-22 10:12 | NUR ---
WOUND CARE CONSULT: PT PRESENTS WITH DRY, CLOSED SURGICAL INCISION TO NOSE AND REDNESS/RASH TO GROIN FOLDS/LOWER BUTTOCKS, PRESENT ON ADMISSION. RECOMMENDATIONS MADE FOR SKIN PROTECTION AND RASH CARE. DISCUSSED WITH NURSING STAFF. PT WILL FOLLOW UP WITH HIS PLASTIC SURGEON FOR NOSE. WILL SEE PRN. OLEA IN AGREEMENT WITH PLAN OF CARE.
[2022-07-22] MEDS ORDERED: POTASSIUM CHLORIDE 20 MEQ POWDER PACKET PO ONE (11:00)
[2022-07-22] MEDS: Magnesium 1GM/D5W 100ML PREMIX 100 ML IV SCH ×2 (11:53→12:57)
[2022-07-22 12:00] VITALS: BP 151/78
[2022-07-22] MEDS: METOPROLOL SUCCINATE 25 MG TAB.SR.24H PO SCH (12:56)
[2022-07-22 16:00] VITALS: BP 172/77
[2022-07-22] MEDS: CLOTRIMAZOLE 1% 15 GM TUBE TP SCH (17:35)
--- NOTE | 2022-07-22 18:50 | NUR ---
RN CLOSING NOTE PATIENT ASLEEP IN BED, NO SIGNS OF ACUTE DISTRESS NOTED. CURRENTLY STABLE ON ROOM AIR, NO SOB NOTED, BREATHING EVEN AND UNLABORED. IV ACCESS ON RIGHT WRIST #20G, INTACT AND PATENT, WITH NS @ 100ML/HR INFUSING WELL. ON TELE MONITOR CURRENTLY SHOWING SINUS RHYTHM, HR @ 84. NO CARDIAC DISTRESS NOTED. ALL DUE MEDS GIVEN. SAFETY MEASURE MAINTAINED. BED IN LOWEST AND LOCKED POSITION, SIDE RAILS UP X2, CALL LIGHT PLACED WITHIN EASY REACH. WILL ENDORSE TO NEXT SHIFT FOR CONTINUITY OF CARE.
--- NOTE | 2022-07-22 19:37 | NUR ---
RN OPENING NOTE RECEIVED PATIENT IN BED, AWAKE, A/O X4, VERBALLY RESPONSIVE,ON RM AIR NICOLE WELL,NO SIGN SOB/DISTRESS NOTED,BREATHING EVEN AND UNLABORED.NO COMPLAIN OF PAIN/DISCOMFORT AT THIS TIME,IV ACCESS ON RIGHT WRIST #20G, INTACT AND PATENT, WITH NS @ 100ML/HR INFUSING WELL.SAFETY MEASURE IN PLACE. BED IN LOWEST AND LOCKED POSITION, SIDE RAILS UP X2, CALL LIGHT PLACED WITHIN EASY REACH. WILL CONTINUE TO MONITOR.
[2022-07-22 20:00] VITALS: BP 160/75
[2022-07-22] MEDS: CEFEPIME 1 GM in IV D5W 50 ML IV SCH (21:29)
[2022-07-23] VITALS: BP 152/79
[2022-07-23] MEDS ORDERED: VANCOMYCIN 1.25 GM in IV D5W 250 ML IV SCH ×2
[2022-07-23 04:00] VITALS: BP 157/78
--- NOTE | 2022-07-23 06:24 | NUR ---
RN CLOSING NOTE; PATIENT IN BED, AWAKE, A/O X4, VERBALLY RESPONSIVE,ON RM AIR NICOLE WELL,NO SIGN SOB/DISTRESS NOTED,BREATHING EVEN AND UNLABORED.NO COMPLAIN OF PAIN/DISCOMFORT DURING SHIFT,DUE MEDS GIVEN ORDER,ALL NEEDS ATTENDED,IV ACCESS ON RIGHT WRIST #20G, INTACT AND PATENT, WITH NS @ 100ML/HR INFUSING WELL.SAFETY MEASURE IN PLACE. BED IN LOWEST AND LOCKED POSITION, SIDE RAILS UP X2, CALL LIGHT PLACED WITHIN EASY REACH. WILL ENDORSED TO NEXT SHIFT.
[2022-07-23 07:30] LABS: BASOPHILS % (AUTO) 0.4 % (0.0-2.0); EOSINOPHILS % (AUTO) 0.5 % (0.0-6.0); HEMATOCRIT 22 % (39-51); HEMOGLOBIN 7.3 g/dL (13.5-17.5); LYMPHOCYTES # (AUTO) 0.6 K/uL (0.8-4.8); LYMPHOCYTES % (AUTO) 14.3 % (20.0-44.0); MEAN CORPUSCULAR HGB CONC 34 g/dl (31.0-36.0); MEAN CORPUSCULAR VOLUME 106 fL (80-96); MONOCYTES # (AUTO) 0.8 K/uL (0.1-1.30); MONOCYTES % (AUTO) 17.3 % (2.0-12.0); NEUTROPHILS % (AUTO) 67.5 % (43.0-81.0); PLATELET COUNT (AUTO) 77 K/uL (150-450); RED BLOOD CELL COUNT(AUTO) 2.04 MIL/uL (4.5-6.0); WHITE BLOOD COUNT (AUTO) 4.4 K/uL (4.3-11.0)
--- NOTE | 2022-07-23 07:30 | NUR ---
RN Accepting Note Patient AOx4 able to express his own concerns. Patient stating he wants to leave AMA, educated on importance of following physicians plan of care, states he will schedule and appointment with his PCP and go from there. Educated patient on safety precautions that he needs to take, states he is independent and able to make his own decision. Patient states he will call grandson and ask to be picked up. Patient with no signs of distress or discomfort, all safety precautions taken, call light and table within reach and bed at lowest position. Will monitor and provide care as needed
[2022-07-23 07:56] LABS: CALCIUM, SERUM 6.5 mg/dL (8.5-10.1); CARBON DIOXIDE 23 mmol/L (21-32); CHLORIDE 104 mmol/L (98-107); CREATININE 1.3 mg/dL (0.6-1.3); GLUCOSE 80 mg/dL (74-106); POTASSIUM 3.7 mmol/L (3.5-5.1); SODIUM SERUM 137 mmol/L (136-145); UREA NITROGEN, BLOOD 13 mg/dL (7-18)
[2022-07-23 08:00] VITALS: BP 144/76
[2022-07-23] MEDS: ATORVASTATIN 10 MG TABLET PO SCH (08:42)
[2022-07-23] MEDS: ASPIRIN 81 MG TAB.CHEW PO SCH (08:42)
[2022-07-23] MEDS: PANTOPRAZOLE 40 MG TABLET.DR PO SCH (08:42)
[2022-07-23 08:43] VITALS: BP 144/76
[2022-07-23] MEDS: FERROUS SULFATE (325 MG) 325 MG/TAB TABLET PO SCH (08:43)
[2022-07-23] MEDS: LOSARTAN POTASSIUM 50 MG TABLET PO SCH (08:43)
[2022-07-23] MEDS: CLOTRIMAZOLE 1% 15 GM TUBE TP SCH (08:44)
--- NOTE | 2022-07-23 10:01 | NUR ---
SW received consult request for possible APS report. SW will follow up today.
--- NOTE | 2022-07-23 11:55 | NUR ---
Certified Pathology Assistant Consult SW received a consult request for a possible APS report. Pt is a 87 year old white male who was admitted for cellulitis. SW met with pt. at bedside. Pt was accompanied by his grandson who was there to pick him up. Pt stated that he was leaving the hospital AMA and was going to be seeing his PCP. Pt. reported living with 2 roommates. SW could not complete assessment due to pt discharge. SW offered pt senior resources in which pt declined. SW will make an APS report due to self neglect.
[2022-07-23] MEDS ORDERED: NEUTRA PHOS 1 POWD.PACKET PO ONE (12:00)
--- NOTE | 2022-07-23 12:30 | NUR ---
AMA Nurse Note Patient AO x4 able to express his own concerns. Patients grandson at bedside states he will take him home. AM signed and filed. Educated patient and grandson on precautions that need to be taken since patient is weak. Grandson and pt verbalized understanding. Wheeled pt to front entrance, all safety precautions taken, no incidents to report. Patient and gs educated on importance of following up with physician and calling for emergency services if needed. Provided medical records to share with PCP.
--- NOTE | 2022-07-23 12:30 | NUR ---
APS report SW made an APS report through [facility] for self neglect. The reference number is [id number].
[2022-07-23 16:08] LABS: LYMPHOCYTES % (MANUAL) 17 % (16-48); MONOCYTES % (MANUAL) 14 % (0-11.0); NEUTROPHILS % (MANUAL) 69 (42-76)
== END 2022-07-23 12:25 | disposition left against medical advice (07) | DRG 602 ==
LOC: ER 21:57 → TRANSITION 07-21 10:03 → TELE 07-21 19:42
PROVIDERS: ATTEND Nurse Practitioner Acute Care
DX: L03.213 Periorbital cellulitis (principal); N17.0 Acute kidney failure with tubular necrosis; N18.9 Chronic kidney disease, unspecified; I25.10 Atherosclerotic heart disease of native coronary artery without angina pectoris; Z20.822 Contact with and (suspected) exposure to COVID-19; E88.09 Other disorders of plasma-protein metabolism, not elsewhere classified; E87.6 Hypokalemia; D64.9 Anemia, unspecified; D69.6 Thrombocytopenia, unspecified; I12.9 Hypertensive chronic kidney disease with stage 1 through stage 4 chronic kidney disease, or unspecified chronic kidney disease; I25.2 Old myocardial infarction; Z79.82 Long term (current) use of aspirin; E86.0 Dehydration; Z85.828 Personal history of other malignant neoplasm of skin
CPT/HCPCS: 36415; 70487-TC; 71045-TC; 80048-TC; 80076-TC; 81001; 82962-TC; 83605-TC; 83735-TC; 84100-TC; 84484-TC; 85025-TC; 85730-TC; 87040-TC; 87081-TC; C9803; G0378; J0692; J3370; J3475; J7030; J7042; J7050; J7060; Q9967

== ENCOUNTER 2024-03-19 11:57 | Inpatient (IN) | payer MEDICARE, OTHER ==
[~2024-03-19] VITALS: Ht 188 cm; Wt 83.5 kg
[~2024-03-19 11:57] MED LIST changes: +METO25TA4 PO; +TRAM50TA2 PO
[2024-03-19] MEDS ORDERED: PANTOPRAZOLE 40 MG VIAL ONE (12:32)
[2024-03-19 12:51] LABS: BASOPHILS % (AUTO) 0.3 % (0.0-2.0); EOSINOPHILS % (AUTO) 0.4 % (0.0-6.0); HEMATOCRIT 32 % (39-51); HEMOGLOBIN 10.5 g/dL (13.5-17.5); LYMPHOCYTES # (AUTO) 0.8 K/uL (0.8-4.8); LYMPHOCYTES % (AUTO) 20.9 % (20.0-44.0); MEAN CORPUSCULAR HEMOGLOBIN 39 PG (26.0-33.0); MEAN CORPUSCULAR HGB CONC 33 g/dl (31.0-36.0); MEAN CORPUSCULAR VOLUME 117 fL (80-96); MONOCYTES # (AUTO) 0.8 K/uL (0.1-1.30); MONOCYTES % (AUTO) 20.8 % (2.0-12.0); NEUTROPHILS # (AUTO) 2.3 K/uL (1.8-8.9); NEUTROPHILS % (AUTO) 57.6 % (43.0-81.0); PLATELET COUNT (AUTO) 93 K/uL (150-450); RED BLOOD CELL COUNT(AUTO) 2.69 MIL/uL (4.5-6.0); WHITE BLOOD COUNT (AUTO) 4.1 K/uL (4.3-11.0)
[2024-03-19 12:59] LABS: CALCIUM, SERUM 8.2 mg/dL (8.5-10.1); CARBON DIOXIDE 21 mmol/L (21-32); CHLORIDE 102 mmol/L (98-107); CREATININE 2.6 mg/dL (0.6-1.3); GLUCOSE 146 mg/dL (74-106); POTASSIUM 4.1 mmol/L (3.5-5.1); SODIUM SERUM 137 mmol/L (136-145); UREA NITROGEN, BLOOD 38 mg/dL (7-18)
[2024-03-19] MEDS: PANTOPRAZOLE 40 MG VIAL IV ONE (13:00)
[2024-03-19] MEDS ORDERED: OMEP20CA15 PO (13:11)
[2024-03-19] MEDS ORDERED: APIX5TAB PO (13:11)
[2024-03-19] MEDS ORDERED: PRED1TAB PO (13:11)
[2024-03-19 13:12] LABS: INR 1.15 (0.91-1.10); PARTIAL THROMBOPLASTIN TIME 44.6 SEC (24.3-34.3); PROTHROMBIN TIME 12.1 SECS (9.2-11.1)
[2024-03-19 13:19] LABS: ALANINE AMINOTRANSFERASE 26 U/L (12-78); ALBUMIN 2.1 g/dL (3.4-5.0); ALKALINE PHOSPHATASE 78 U/L (46-116); ASPARTATE AMINOTRANSFERASE 20 U/L (15-37); BILIRUBIN,DIRECT 0.3 mg/dL (0.0-0.2); BILIRUBIN,TOTAL 1.1 mg/dL (0.2-1.0); TOTAL PROTEIN, SERUM 7.8 g/dL (6.4-8.2)
[2024-03-19 14:21] LABS: ANISOCYTOSIS 1+; BASOPHILS % (MANUAL) 0 % (0.0-2.0); EOSINOPHILS % (MANUAL) 0 % (0-4); LYMPHOCYTES % (MANUAL) 22 % (16-48); MONOCYTES % (MANUAL) 15 % (0-11.0); NEUTROPHILS % (MANUAL) 63 (42-76); PLATELET ESTIMATE DECREASED
[2024-03-19] MEDS ORDERED: MAGNESIUM HYDROXIDE 30 ML UDC PO PRN (15:00)
[2024-03-19] MEDS ORDERED: ONDANSETRON HCL/PF 4 MG/2 ML VIAL IVP PRN (15:00)
[2024-03-19] MEDS ORDERED: Z GUARD REMEDY 4 OZ OINT TP PRN (15:00)
[2024-03-19] MEDS ORDERED: MAG HYDROX/AL HYDROX/SIMETH 30 ML UDC PO PRN (15:00)
[2024-03-19 16:00] VITALS: BP 119/65; TEMP 97.8; O2SAT 98
[2024-03-19] MEDS: PANTOPRAZOLE 40 MG VIAL IV SCH (17:55)
[2024-03-19 20:00] VITALS: BP 97/59; TEMP 97.4; O2SAT 98
[2024-03-19] MEDS: IV NS 0.9% 1,000 ML IV PRN (20:19)
[2024-03-19 21:50] LABS: HEMOGLOBIN 9.6 g/dL (13.5-17.5); RETICULOCYTE COUNT 0.8 % (0.6-2.5)
[2024-03-19 22:26] LABS: IRON, SERUM 28 ug/dl (50-175); TOTAL IRON BINDING CAPACITY 95 ug/dl (250-450)
[2024-03-19 23:05] LABS: FERRITIN 2374 ng/mL (8-388)
[2024-03-20] VITALS: BP 131/72; TEMP 98.4; O2SAT 99
[2024-03-20] MEDS: ZOLPIDEM TARTRATE 5 MG TABLET PO PRN (00:27)
[2024-03-20 04:00] VITALS: BP 135/80; TEMP 98.3; O2SAT 95
[2024-03-20 06:50] LABS: BASOPHILS % (AUTO) 0.5 % (0.0-2.0); EOSINOPHILS % (AUTO) 0.3 % (0.0-6.0); HEMATOCRIT 29 % (39-51); HEMOGLOBIN 9.8 g/dL (13.5-17.5); LYMPHOCYTES % (AUTO) 37.7 % (20.0-44.0); MEAN CORPUSCULAR HEMOGLOBIN 40 PG (26.0-33.0); MEAN CORPUSCULAR HGB CONC 34 g/dl (31.0-36.0); MEAN CORPUSCULAR VOLUME 117 fL (80-96); MONOCYTES # (AUTO) 0.6 K/uL (0.1-1.30); MONOCYTES % (AUTO) 20.5 % (2.0-12.0); NEUTROPHILS # (AUTO) 1.1 K/uL (1.8-8.9); PLATELET COUNT (AUTO) 62 K/uL (150-450); RED BLOOD CELL COUNT(AUTO) 2.48 MIL/uL (4.5-6.0); RED CELL DISTRIBUTION WIDTH 14.2 % (11.5-15.0); WHITE BLOOD COUNT (AUTO) 2.7 K/uL (4.3-11.0)
[2024-03-20 07:14] LABS: ALANINE AMINOTRANSFERASE 22 U/L (12-78); ALBUMIN 1.8 g/dL (3.4-5.0); ALKALINE PHOSPHATASE 62 U/L (46-116); ASPARTATE AMINOTRANSFERASE 12 U/L (15-37); BILIRUBIN,TOTAL 0.5 mg/dL (0.2-1.0); CALCIUM, SERUM 7.7 mg/dL (8.5-10.1); CARBON DIOXIDE 20 mmol/L (21-32); CHLORIDE 107 mmol/L (98-107); CREATININE 2.4 mg/dL (0.6-1.3); GLUCOSE 88 mg/dL (74-106); POTASSIUM 4.1 mmol/L (3.5-5.1); SODIUM SERUM 139 mmol/L (136-145); TOTAL PROTEIN, SERUM 6.9 g/dL (6.4-8.2); UREA NITROGEN, BLOOD 39 mg/dL (7-18)
[2024-03-20 08:00] VITALS: BP 124/58; TEMP 97.6; O2SAT 95
[2024-03-20 12:00] VITALS: BP 125/59; TEMP 97.9; O2SAT 99
[2024-03-20 12:44] LABS: ANISOCYTOSIS 1+; BASOPHILS % (MANUAL) 0 % (0.0-2.0); EOSINOPHILS % (MANUAL) 0 % (0-4); LYMPHOCYTES % (MANUAL) 27 % (16-48); MONOCYTES % (MANUAL) 12 % (0-11.0); NEUTROPHILS % (MANUAL) 61 (42-76); OVALOCYTES RARE; PLATELET ESTIMATE DECREASED
[2024-03-20] MEDS: ENSURE ENLIVE 237 ML LIQUID (VANILLA) PO SCH (14:00)
[2024-03-20 15:31] LABS: HEMOGLOBIN 10.1 g/dL (13.5-17.5)
[2024-03-20 16:00] VITALS: BP 113/48; TEMP 98.5; O2SAT 98
[2024-03-20 20:00] VITALS: BP 143/57; TEMP 98.2; O2SAT 98
[2024-03-21] VITALS (9 sets, daily range): BP systolic 120–137; BP diastolic 52–68; TEMP 97.9–98.6; O2SAT 96–98
[2024-03-21 07:27] LABS: ALANINE AMINOTRANSFERASE 30 U/L (12-78); ALBUMIN 1.7 g/dL (3.4-5.0); ALKALINE PHOSPHATASE 61 U/L (46-116); ASPARTATE AMINOTRANSFERASE 15 U/L (15-37); BASOPHILS % (AUTO) 0.6 % (0.0-2.0); BILIRUBIN,TOTAL 0.6 mg/dL (0.2-1.0); CARBON DIOXIDE 20 mmol/L (21-32); CHLORIDE 109 mmol/L (98-107); CREATININE 2.3 mg/dL (0.6-1.3); EOSINOPHILS % (AUTO) 0.5 % (0.0-6.0); GLUCOSE 79 mg/dL (74-106); HEMATOCRIT 27 % (39-51); LYMPHOCYTES # (AUTO) 1.1 K/uL (0.8-4.8); LYMPHOCYTES % (AUTO) 38.5 % (20.0-44.0); MAGNESIUM 1.5 mg/dL (1.8-2.4); MEAN CORPUSCULAR HEMOGLOBIN 39 PG (26.0-33.0); MEAN CORPUSCULAR HGB CONC 33 g/dl (31.0-36.0); MEAN CORPUSCULAR VOLUME 117 fL (80-96); MONOCYTES # (AUTO) 0.6 K/uL (0.1-1.30); MONOCYTES % (AUTO) 19.7 % (2.0-12.0); NEUTROPHILS # (AUTO) 1.2 K/uL (1.8-8.9); NEUTROPHILS % (AUTO) 40.7 % (43.0-81.0); PHOSPHORUS 3.9 mg/dL (2.5-4.9); PLATELET COUNT (AUTO) 80 K/uL (150-450); POTASSIUM 3.9 mmol/L (3.5-5.1); RED BLOOD CELL COUNT(AUTO) 2.32 MIL/uL (4.5-6.0); RED CELL DISTRIBUTION WIDTH 13.9 % (11.5-15.0); SODIUM SERUM 141 mmol/L (136-145); TOTAL PROTEIN, SERUM 6.6 g/dL (6.4-8.2); UREA NITROGEN, BLOOD 40 mg/dL (7-18); WHITE BLOOD COUNT (AUTO) 2.9 K/uL (4.3-11.0)
[2024-03-21 07:28] LABS: CREATINE KINASE, TOTAL 55 U/L (39-308)
[2024-03-21 07:43] LABS: APPEARANCE,URINE CLEAR (CLEAR); BILIRUBIN,URINE NEGATIVE (NEGATIVE); BLOOD, URINE 2+ Ery/uL (NEGATIVE); COLOR,URINE YELLOW (YELLOW); KETONES,URINE NEGATIVE (NEGATIVE); LEUKOCYTE ESTERASE ,URINE NEGATIVE (NEGATIVE); NITRITE, URINE NEGATIVE (NEGATIVE); PH,URINE 5.5 (5.0-8.0); PROTEIN,URINE TRACE mg/dl (NEGATIVE); UGLUCOSE NEGATIVE (NEGATIVE); UROBILINOGEN,URINE 0.2 EU/dL (0.2)
[2024-03-21 07:47] LABS: ADD URINE CULTURE NO; BACTERIA,URINE Rare /HPF (None Seen); EOSINOPHIL,URINE None Seen; SQUAMOUS EPITHELIAL CELL,UR Few /HPF (None Seen); WBC,URINE 0-2 /HPF (0-3)
[2024-03-21 07:53] LABS: CREATININE, URINE 72.9 MG/DL (30.0-125.0); URINE TOTAL PROTEIN 56.1 mg/dL (0-11.9)
[2024-03-21] MEDS: Magnesium 1GM/D5W 100ML PREMIX 100 ML IV SCH (09:05)
[2024-03-21 10:53] LABS: ANISOCYTOSIS 1+; BASOPHILS % (MANUAL) 0 % (0.0-2.0); EOSINOPHILS % (MANUAL) 0 % (0-4); LYMPHOCYTES % (MANUAL) 29 % (16-48); MONOCYTES % (MANUAL) 17 % (0-11.0); NEUTROPHILS % (MANUAL) 54 (42-76); PLATELET ESTIMATE DECREASED
[2024-03-21] MEDS: SOD FERRIC GLUC 125 MG in IV NS 0.9% 100 ML IV SCH (13:25)
[2024-03-21] MEDS ORDERED: ANESTHESIA TRAY IN PYXIS 1 EA TRAY MC ONE (14:44)
[2024-03-21] MEDS: ENSURE ENLIVE CHOC 237 ML CAN PO SCH (17:14)
[2024-03-22] VITALS: BP 141/82; TEMP 98.1; O2SAT 97
[2024-03-22 04:00] VITALS: BP 126/49; TEMP 97.9; O2SAT 96
[2024-03-22 08:00] VITALS: BP 112/47; TEMP 98.8; O2SAT 98
[2024-03-22 10:38] LABS: BASOPHILS % (AUTO) 0.5 % (0.0-2.0); EOSINOPHILS % (AUTO) 0.6 % (0.0-6.0); HEMATOCRIT 25 % (39-51); HEMOGLOBIN 8.5 g/dL (13.5-17.5); LYMPHOCYTES # (AUTO) 0.8 K/uL (0.8-4.8); LYMPHOCYTES % (AUTO) 25.3 % (20.0-44.0); MEAN CORPUSCULAR HEMOGLOBIN 39 PG (26.0-33.0); MEAN CORPUSCULAR HGB CONC 33 g/dl (31.0-36.0); MEAN CORPUSCULAR VOLUME 117 fL (80-96); MONOCYTES # (AUTO) 0.4 K/uL (0.1-1.30); MONOCYTES % (AUTO) 11.1 % (2.0-12.0); NEUTROPHILS % (AUTO) 62.5 % (43.0-81.0); PLATELET COUNT (AUTO) 75 K/uL (150-450); RED BLOOD CELL COUNT(AUTO) 2.16 MIL/uL (4.5-6.0); RED CELL DISTRIBUTION WIDTH 14.3 % (11.5-15.0); WHITE BLOOD COUNT (AUTO) 3.2 K/uL (4.3-11.0)
[2024-03-22 10:45] LABS: CALCIUM, SERUM 7.9 mg/dL (8.5-10.1); CARBON DIOXIDE 20 mmol/L (21-32); CHLORIDE 108 mmol/L (98-107); CREATININE 1.9 mg/dL (0.6-1.3); GLUCOSE 102 mg/dL (74-106); POTASSIUM 3.9 mmol/L (3.5-5.1); SODIUM SERUM 139 mmol/L (136-145); UREA NITROGEN, BLOOD 32 mg/dL (7-18)
[2024-03-22 11:15] LABS: BASOPHILS % (MANUAL) 0 % (0.0-2.0); EOSINOPHILS % (MANUAL) 0 % (0-4); LYMPHOCYTES % (MANUAL) 23 % (16-48); MONOCYTES % (MANUAL) 8 % (0-11.0); NEUTROPHILS % (MANUAL) 69 (42-76)
[2024-03-22 11:16] LABS: PLATELET ESTIMATE DECREASED
[2024-03-22 12:00] VITALS: BP 143/61; TEMP 97.7; O2SAT 99
[2024-03-22] MEDS: PANTOPRAZOLE 40 MG TABLET.DR PO SCH (15:55)
[2024-03-22 16:00] VITALS: BP 153/56; TEMP 97.9; O2SAT 99
[2024-03-22] MEDS: APIXABAN 2.5 MG TABLET PO SCH (17:15)
[2024-03-22 20:00] VITALS: BP 142/64; TEMP 98.6; O2SAT 99
[2024-03-23] VITALS: BP 127/59; TEMP 100; O2SAT 95
[2024-03-23] MEDS: ACETAMINOPHEN 325 MG TABLET PO PRN (00:03)
[2024-03-23 01:10] LABS: PTH, INTACT 78 pg/mL (15-65)
[2024-03-23 04:00] VITALS: BP 140/60; TEMP 98.4; O2SAT 97
[2024-03-23 07:38] LABS: BASOPHILS % (AUTO) 0.4 % (0.0-2.0); EOSINOPHILS % (AUTO) 1.1 % (0.0-6.0); HEMATOCRIT 25 % (39-51); HEMOGLOBIN 8.1 g/dL (13.5-17.5); LYMPHOCYTES % (AUTO) 26.3 % (20.0-44.0); MEAN CORPUSCULAR HEMOGLOBIN 39 PG (26.0-33.0); MEAN CORPUSCULAR HGB CONC 33 g/dl (31.0-36.0); MEAN CORPUSCULAR VOLUME 119 fL (80-96); MONOCYTES # (AUTO) 0.5 K/uL (0.1-1.30); MONOCYTES % (AUTO) 14.3 % (2.0-12.0); NEUTROPHILS # (AUTO) 2.2 K/uL (1.8-8.9); NEUTROPHILS % (AUTO) 57.9 % (43.0-81.0); PLATELET COUNT (AUTO) 75 K/uL (150-450); RED BLOOD CELL COUNT(AUTO) 2.05 MIL/uL (4.5-6.0); RED CELL DISTRIBUTION WIDTH 14.2 % (11.5-15.0); WHITE BLOOD COUNT (AUTO) 3.7 K/uL (4.3-11.0)
[2024-03-23 08:00] VITALS: BP 156/60; TEMP 98; O2SAT 96
[2024-03-23 08:04] LABS: CALCIUM, SERUM 8.1 mg/dL (8.5-10.1); CARBON DIOXIDE 22 mmol/L (21-32); CHLORIDE 109 mmol/L (98-107); CREATININE 1.7 mg/dL (0.6-1.3); GLUCOSE 86 mg/dL (74-106); POTASSIUM 4.2 mmol/L (3.5-5.1); SODIUM SERUM 141 mmol/L (136-145); UREA NITROGEN, BLOOD 30 mg/dL (7-18)
[2024-03-23 08:28] LABS: BASOPHILS % (MANUAL) 0 % (0.0-2.0); EOSINOPHILS % (MANUAL) 0 % (0-4); LYMPHOCYTES % (MANUAL) 25 % (16-48); MONOCYTES % (MANUAL) 14 % (0-11.0); NEUTROPHILS % (MANUAL) 61 (42-76); PLATELET ESTIMATE DECREASED
[2024-03-23 11:11] LABS: *SPE A/G RATIO 0.6 (0.7-1.7); *SPE ALBUMIN 2.1 g/dL (2.9-4.4); *SPE ALPHA-1-GLOBULIN 0.4 g/dL (0.0-0.4); *SPE ALPHA-2-GLOBULIN 0.9 g/dL (0.4-1.0); *SPE BETA GLOBULIN 0.8 g/dL (0.7-1.3); *SPE GLOBULIN, TOTAL 3.5 g/dL (2.2-3.9); *SPE M-SPIKE Not Observed g/dL (Not Observed); *SPE PROTEIN TOTAL 5.6 g/dL (6.0-8.5); *SPEGAMMA GLOBULIN 1.3 g/dL (0.4-1.8)
[2024-03-23 12:00] VITALS: BP 134/63; TEMP 97.9; O2SAT 98
[2024-03-23] MEDS ORDERED: APIX2.5T PO (14:28)
[2024-03-24] MEDS ORDERED: ASPI1TAB2 PO (18:55)
[2024-03-24] MEDS ORDERED: DIVA-76 PO (18:55)
[2024-03-24] MEDS ORDERED: RISP0.5T5 PO (18:55)
[2024-03-24] MEDS ORDERED: FURO-145 PO (18:55)
[2024-03-24] MEDS ORDERED: POTA10CA43 PO (18:55)
[2024-03-24] MEDS ORDERED: LEVO75TA PO (18:55)
[2024-03-24] MEDS ORDERED: LISI10TA29 PO (18:55)
[2024-03-24] MEDS ORDERED: GABA100C PO (18:55)
[2024-03-24] MEDS ORDERED: APIX2.5T PO (18:55)
[2024-03-24] MEDS ORDERED: ARIP15TA3 PO (18:55)
== END 2024-03-23 16:37 | disposition home health service (06) | DRG 391 ==
LOC: ER 12:23 → TELE-TD 13:57 → TELE1 14:39
PROVIDERS: ADMIT Internal Medicine; ATTEND Internal Medicine
PROC: 0DJ08ZZ Inspection of Upper Intestinal Tract, Via Natural or Artificial Opening Endoscopic (ICD-10-PCS; principal; 2024-03-21)
DX: K29.70 Gastritis, unspecified, without bleeding (principal); G93.41 Metabolic encephalopathy; N17.0 Acute kidney failure with tubular necrosis; I82.413 Acute embolism and thrombosis of femoral vein, bilateral; I82.433 Acute embolism and thrombosis of popliteal vein, bilateral; D63.8 Anemia in other chronic diseases classified elsewhere; I10 Essential (primary) hypertension; Z79.01 Long term (current) use of anticoagulants; Z86.718 Personal history of other venous thrombosis and embolism; E78.5 Hyperlipidemia, unspecified; I25.10 Atherosclerotic heart disease of native coronary artery without angina pectoris; Z85.828 Personal history of other malignant neoplasm of skin; M89.8X9 Other specified disorders of bone, unspecified site; K21.9 Gastro-esophageal reflux disease without esophagitis
CPT/HCPCS: 36415; 71045-TC; 76770-TC; 80048-TC; 80053-TC; 80076-TC; 81001; 82550-TC; 82570-TC; 82607-TC; 82728-TC; 83540-TC; 83735-TC; 83970; 84100-TC; 84155; 84165; 84300-TC; 85025-TC; 85027-TC; 85045-TC; 85730-TC; 86850-TC; 93970-TC; 97116-TC; 97530-TC; A4223; G0378; J2470; J2704; J2916; J3475; J7030

== ENCOUNTER 2024-03-24 17:52 | Inpatient (IN) | payer MEDICARE, OTHER ==
[~2024-03-24] VITALS: Ht 182.9 cm; Wt 85.3 kg
[~2024-03-24 17:52] MED LIST changes: +APIX2.5T PO; -ASPI-1169 PO; -HYDR-3972 PO; -METO25TA4 PO; -OMEP-99 PO; +OMEP20CA15 PO; +PRED1TAB PO; -PRED5TAB PO; -TRAM50TA2 PO; -TRIA1TAB3 PO
[2024-03-24 18:42] LABS: BASOPHILS % (AUTO) 0.9 % (0.0-2.0); EOSINOPHILS % (AUTO) 0.9 % (0.0-6.0); HEMATOCRIT 29 % (39-51); HEMOGLOBIN 9.2 g/dL (13.5-17.5); LYMPHOCYTES # (AUTO) 0.9 K/uL (0.8-4.8); LYMPHOCYTES % (AUTO) 19.5 % (20.0-44.0); MEAN CORPUSCULAR HEMOGLOBIN 38 PG (26.0-33.0); MEAN CORPUSCULAR HGB CONC 32 g/dl (31.0-36.0); MEAN CORPUSCULAR VOLUME 119 fL (80-96); MONOCYTES # (AUTO) 0.6 K/uL (0.1-1.30); MONOCYTES % (AUTO) 12.5 % (2.0-12.0); NEUTROPHILS # (AUTO) 3.1 K/uL (1.8-8.9); NEUTROPHILS % (AUTO) 66.2 % (43.0-81.0); PLATELET COUNT (AUTO) 85 K/uL (150-450); RED CELL DISTRIBUTION WIDTH 13.8 % (11.5-15.0); WHITE BLOOD COUNT (AUTO) 4.7 K/uL (4.3-11.0)
[2024-03-24] MEDS ORDERED: LEVO75TA PO (18:55)
[2024-03-24] MEDS ORDERED: POTA10CA43 PO (18:55)
[2024-03-24] MEDS ORDERED: LISI10TA29 PO (18:55)
[2024-03-24] MEDS ORDERED: APIX2.5T PO (18:55)
[2024-03-24] MEDS ORDERED: GABA100C PO (18:55)
[2024-03-24] MEDS ORDERED: ARIP15TA3 PO (18:55)
[2024-03-24] MEDS ORDERED: RISP0.5T5 PO (18:55)
[2024-03-24] MEDS ORDERED: ASPI1TAB2 PO (18:55)
[2024-03-24] MEDS ORDERED: FURO-145 PO (18:55)
[2024-03-24] MEDS ORDERED: DIVA-76 PO (18:55)
[2024-03-24 18:57] LABS: ALANINE AMINOTRANSFERASE 28 U/L (12-78); ALBUMIN 2.2 g/dL (3.4-5.0); ALKALINE PHOSPHATASE 64 U/L (46-116); ASPARTATE AMINOTRANSFERASE 20 U/L (15-37); BILIRUBIN,DIRECT 0.2 mg/dL (0.0-0.2); BILIRUBIN,TOTAL 0.9 mg/dL (0.2-1.0); CARBON DIOXIDE 21 mmol/L (21-32); CHLORIDE 104 mmol/L (98-107); CREATININE 1.8 mg/dL (0.6-1.3); GLUCOSE 89 mg/dL (74-106); INR 1.04 (0.91-1.10); PARTIAL THROMBOPLASTIN TIME 39.4 SEC (24.3-34.3); POTASSIUM 4.8 mmol/L (3.5-5.1); PROTHROMBIN TIME 10.7 SECS (9.2-11.1); SODIUM SERUM 136 mmol/L (136-145); TOTAL PROTEIN, SERUM 7.5 g/dL (6.4-8.2); UREA NITROGEN, BLOOD 30 mg/dL (7-18)
[2024-03-24 19:02] LABS: CALCIUM, SERUM 8.6 mg/dL (8.5-10.1)
[2024-03-24 19:03] LABS: THYROID STIMULATING HORMONE 7.65 uIU/mL (0.358-3.74)
[2024-03-24] MEDS: IV NS 0.9% 500 ML BAG IV ONE (19:23)
[2024-03-24 19:35] LABS: BAND % (MANUAL) 2 % (0.0-5.0); LYMPHOCYTES % (MANUAL) 21 % (16-48); MONOCYTES % (MANUAL) 7 % (0-11.0); NEUTROPHILS % (MANUAL) 70 (42-76); PLATELET ESTIMATE DECREASED
[2024-03-24] MEDS ORDERED: MAGNESIUM HYDROXIDE 30 ML UDC PO PRN (20:00)
[2024-03-24] MEDS ORDERED: ONDANSETRON HCL/PF 4 MG/2 ML VIAL IVP PRN (20:00)
[2024-03-24] MEDS ORDERED: MAG HYDROX/AL HYDROX/SIMETH 30 ML UDC PO PRN (20:00)
[2024-03-24] MEDS ORDERED: Z GUARD REMEDY 4 OZ OINT TP PRN (20:00)
[2024-03-24] MEDS ORDERED: TEMAZEPAM 15 MG CAPSULE PO PRN (20:00)
[2024-03-24 22:15] VITALS: BP 125/65; TEMP 98.1; O2SAT 99
[2024-03-25] VITALS (8 sets, daily range): BP systolic 103–146; BP diastolic 49–73; TEMP 97.7–207.9; O2SAT 96–99
[2024-03-25 06:45] LABS: BASOPHILS % (AUTO) 0.6 % (0.0-2.0); EOSINOPHILS # (AUTO) 0.1 K/uL (0.0-0.7); EOSINOPHILS % (AUTO) 1.6 % (0.0-6.0); HEMATOCRIT 24 % (39-51); HEMOGLOBIN 7.8 g/dL (13.5-17.5); LYMPHOCYTES # (AUTO) 0.9 K/uL (0.8-4.8); LYMPHOCYTES % (AUTO) 25.5 % (20.0-44.0); MEAN CORPUSCULAR HEMOGLOBIN 39 PG (26.0-33.0); MEAN CORPUSCULAR HGB CONC 33 g/dl (31.0-36.0); MEAN CORPUSCULAR VOLUME 117 fL (80-96); MONOCYTES # (AUTO) 0.6 K/uL (0.1-1.30); MONOCYTES % (AUTO) 16.6 % (2.0-12.0); NEUTROPHILS # (AUTO) 1.9 K/uL (1.8-8.9); NEUTROPHILS % (AUTO) 55.7 % (43.0-81.0); PLATELET COUNT (AUTO) 85 K/uL (150-450); RED BLOOD CELL COUNT(AUTO) 2.01 MIL/uL (4.5-6.0); RED CELL DISTRIBUTION WIDTH 13.5 % (11.5-15.0); WHITE BLOOD COUNT (AUTO) 3.3 K/uL (4.3-11.0)
[2024-03-25 07:12] LABS: CALCIUM, SERUM 7.9 mg/dL (8.5-10.1); CARBON DIOXIDE 19 mmol/L (21-32); CHLORIDE 107 mmol/L (98-107); CREATININE 1.8 mg/dL (0.6-1.3); GLUCOSE 82 mg/dL (74-106); MAGNESIUM 1.3 mg/dL (1.8-2.4); POTASSIUM 4.4 mmol/L (3.5-5.1); SODIUM SERUM 138 mmol/L (136-145); UREA NITROGEN, BLOOD 29 mg/dL (7-18)
[2024-03-25] MEDS: LEVOTHYROXINE SODIUM 75 MCG TABLET PO SCH (07:51)
[2024-03-25 08:32] LABS: BASOPHILS % (MANUAL) 0 % (0.0-2.0); EOSINOPHILS % (MANUAL) 1 % (0-4); LYMPHOCYTES % (MANUAL) 27 % (16-48); MONOCYTES % (MANUAL) 10 % (0-11.0); NEUTROPHILS % (MANUAL) 62 (42-76); PLATELET ESTIMATE DECREASED
[2024-03-25] MEDS: PANTOPRAZOLE 40 MG VIAL IV SCH (09:04)
[2024-03-25] MEDS: POTASSIUM CHLORIDE 10 MEQ TABLET.SA PO SCH (09:04)
[2024-03-25] MEDS: ARIPIPRAZOLE 5 MG TABLET PO SCH (09:04)
[2024-03-25] MEDS: FUROSEMIDE 20 MG/2 ML VIAL IV SCH (09:04)
[2024-03-25] MEDS: DIVALPROEX SODIUM 250 MG TABLET.DR PO SCH (09:04)
[2024-03-25] MEDS: risperiDONE 0.25 MG TABLET PO SCH (09:05)
[2024-03-25] MEDS: GABAPENTIN 100 MG CAPSULE PO SCH (09:05)
[2024-03-25] MEDS: APIXABAN 2.5 MG TABLET PO SCH (09:06)
[2024-03-25] MEDS: ACETAMINOPHEN 325 MG TABLET PO PRN (09:09)
[2024-03-25] MEDS: MAGNESIUM OXIDE 400 MG TABLET PO ONE (10:14)
[2024-03-25 17:00] LABS: CREATININE, URINE 33.5 MG/DL (30.0-125.0)
[2024-03-25 17:36] LABS: URINE TOTAL PROTEIN 34.4 mg/dL (0-11.9)
[2024-03-25 17:50] LABS: APPEARANCE,URINE CLEAR (CLEAR); BILIRUBIN,URINE NEGATIVE (NEGATIVE); BLOOD, URINE TRACE-INTA Ery/uL (NEGATIVE); COLOR,URINE YELLOW (YELLOW); KETONES,URINE NEGATIVE (NEGATIVE); LEUKOCYTE ESTERASE ,URINE NEGATIVE (NEGATIVE); NITRITE, URINE NEGATIVE (NEGATIVE); PROTEIN,URINE NEGATIVE (NEGATIVE); UGLUCOSE NEGATIVE (NEGATIVE); UROBILINOGEN,URINE 0.2 EU/dL (0.2)
[2024-03-25 18:02] LABS: ADD URINE CULTURE NO; BACTERIA,URINE Few /HPF (None Seen); EOSINOPHIL,URINE None Seen; RBC,URINE 0-2 /HPF (0-2); SQUAMOUS EPITHELIAL CELL,UR Few /HPF (None Seen); WBC,URINE 0-2 /HPF (0-3)
[2024-03-26] VITALS (10 sets, daily range): BP systolic 82–136; BP diastolic 47–71; TEMP 97.3–99.9; O2SAT 94–100
[2024-03-26 07:43] LABS: BASOPHILS % (AUTO) 0.5 % (0.0-2.0); EOSINOPHILS % (AUTO) 0.9 % (0.0-6.0); HEMATOCRIT 27 % (39-51); HEMOGLOBIN 8.9 g/dL (13.5-17.5); LYMPHOCYTES # (AUTO) 0.8 K/uL (0.8-4.8); LYMPHOCYTES % (AUTO) 17.8 % (20.0-44.0); MEAN CORPUSCULAR HEMOGLOBIN 39 PG (26.0-33.0); MEAN CORPUSCULAR HGB CONC 33 g/dl (31.0-36.0); MEAN CORPUSCULAR VOLUME 118 fL (80-96); MONOCYTES # (AUTO) 0.6 K/uL (0.1-1.30); MONOCYTES % (AUTO) 13.1 % (2.0-12.0); NEUTROPHILS # (AUTO) 3.2 K/uL (1.8-8.9); NEUTROPHILS % (AUTO) 67.7 % (43.0-81.0); PLATELET COUNT (AUTO) 97 K/uL (150-450); RED BLOOD CELL COUNT(AUTO) 2.27 MIL/uL (4.5-6.0); RED CELL DISTRIBUTION WIDTH 14.2 % (11.5-15.0); WHITE BLOOD COUNT (AUTO) 4.7 K/uL (4.3-11.0)
[2024-03-26 08:35] LABS: CALCIUM, SERUM 8.4 mg/dL (8.5-10.1); CARBON DIOXIDE 19 mmol/L (21-32); CHLORIDE 106 mmol/L (98-107); CREATININE 1.8 mg/dL (0.6-1.3); GLUCOSE 91 mg/dL (74-106); POTASSIUM 4.4 mmol/L (3.5-5.1); SODIUM SERUM 138 mmol/L (136-145); UREA NITROGEN, BLOOD 25 mg/dL (7-18)
[2024-03-26 12:47] LABS: ANISOCYTOSIS 1+; BASOPHILS % (MANUAL) 0 % (0.0-2.0); EOSINOPHILS % (MANUAL) 2 % (0-4); LYMPHOCYTES % (MANUAL) 22 % (16-48); MONOCYTES % (MANUAL) 11 % (0-11.0); NEUTROPHILS % (MANUAL) 65 (42-76); PLATELET ESTIMATE DECREASED
[2024-03-26] MEDS: HYDROCORTISONE SOD SUCCINATE 100 MG/2 ML VIAL IV SCH (19:45)
[2024-03-27] VITALS (7 sets, daily range): BP systolic 115–142; BP diastolic 56–69; TEMP 97.5–98.4; O2SAT 96–98
[2024-03-27 07:40] LABS: BASOPHILS % (AUTO) 0.6 % (0.0-2.0); EOSINOPHILS % (AUTO) 0.1 % (0.0-6.0); HEMATOCRIT 25 % (39-51); HEMOGLOBIN 8.4 g/dL (13.5-17.5); LYMPHOCYTES # (AUTO) 0.5 K/uL (0.8-4.8); LYMPHOCYTES % (AUTO) 11.4 % (20.0-44.0); MEAN CORPUSCULAR HEMOGLOBIN 39 PG (26.0-33.0); MEAN CORPUSCULAR HGB CONC 33 g/dl (31.0-36.0); MEAN CORPUSCULAR VOLUME 118 fL (80-96); MONOCYTES # (AUTO) 0.3 K/uL (0.1-1.30); MONOCYTES % (AUTO) 8.5 % (2.0-12.0); NEUTROPHILS # (AUTO) 3.2 K/uL (1.8-8.9); NEUTROPHILS % (AUTO) 79.4 % (43.0-81.0); PLATELET COUNT (AUTO) 101 K/uL (150-450); RED BLOOD CELL COUNT(AUTO) 2.14 MIL/uL (4.5-6.0); RED CELL DISTRIBUTION WIDTH 13.3 % (11.5-15.0); WHITE BLOOD COUNT (AUTO) 4.1 K/uL (4.3-11.0)
[2024-03-27 07:42] LABS: CALCIUM, SERUM 8.5 mg/dL (8.5-10.1); CARBON DIOXIDE 20 mmol/L (21-32); CHLORIDE 104 mmol/L (98-107); CREATININE 2.2 mg/dL (0.6-1.3); GLUCOSE 107 mg/dL (74-106); POTASSIUM 5.3 mmol/L (3.5-5.1); SODIUM SERUM 136 mmol/L (136-145); UREA NITROGEN, BLOOD 34 mg/dL (7-18)
[2024-03-27] MEDS: PANTOPRAZOLE 40 MG TABLET.DR PO SCH (08:15)
[2024-03-27] MEDS: SODIUM POLYSTYRENE SULFONATE 15 G/60 ML BOTTLE PO ONE (12:00)
[2024-03-28] VITALS: BP 144/59; TEMP 98.2; O2SAT 99
[2024-03-28 04:00] VITALS: BP 136/63; TEMP 97.7; O2SAT 95
[2024-03-28 04:30] VITALS: BP 136/63; TEMP 97.7; O2SAT 97
[2024-03-28 07:30] VITALS: BP 137/70; TEMP 97.3; O2SAT 99
[2024-03-28 07:54] LABS: BASOPHILS % (AUTO) 0.9 % (0.0-2.0); EOSINOPHILS # (AUTO) 0.1 K/uL (0.0-0.7); EOSINOPHILS % (AUTO) 2.8 % (0.0-6.0); HEMATOCRIT 24 % (39-51); HEMOGLOBIN 8.1 g/dL (13.5-17.5); LYMPHOCYTES # (AUTO) 1.2 K/uL (0.8-4.8); LYMPHOCYTES % (AUTO) 39.4 % (20.0-44.0); MEAN CORPUSCULAR HEMOGLOBIN 40 PG (26.0-33.0); MEAN CORPUSCULAR HGB CONC 33 g/dl (31.0-36.0); MEAN CORPUSCULAR VOLUME 119 fL (80-96); MONOCYTES # (AUTO) 0.4 K/uL (0.1-1.30); NEUTROPHILS # (AUTO) 1.3 K/uL (1.8-8.9); NEUTROPHILS % (AUTO) 42.9 % (43.0-81.0); PLATELET COUNT (AUTO) 92 K/uL (150-450); RED BLOOD CELL COUNT(AUTO) 2.04 MIL/uL (4.5-6.0); RED CELL DISTRIBUTION WIDTH 13.3 % (11.5-15.0); WHITE BLOOD COUNT (AUTO) 3.1 K/uL (4.3-11.0)
[2024-03-28 08:03] LABS: ALANINE AMINOTRANSFERASE 18 U/L (12-78); ALBUMIN 1.6 g/dL (3.4-5.0); ALKALINE PHOSPHATASE 58 U/L (46-116); ASPARTATE AMINOTRANSFERASE 10 U/L (15-37); BILIRUBIN,TOTAL 0.3 mg/dL (0.2-1.0); CALCIUM, SERUM 8.2 mg/dL (8.5-10.1); CARBON DIOXIDE 23 mmol/L (21-32); CHLORIDE 106 mmol/L (98-107); CREATININE 2.4 mg/dL (0.6-1.3); GLUCOSE 77 mg/dL (74-106); MAGNESIUM 1.8 mg/dL (1.8-2.4); PHOSPHORUS 4.7 mg/dL (2.5-4.9); POTASSIUM 4.5 mmol/L (3.5-5.1); SODIUM SERUM 138 mmol/L (136-145); TOTAL PROTEIN, SERUM 6.6 g/dL (6.4-8.2); UREA NITROGEN, BLOOD 42 mg/dL (7-18)
[2024-03-28] MEDS: predniSONE 1 MG TABLET PO SCH (08:37)
[2024-03-28] MEDS ORDERED: PRED5TAB48 PO (11:25)
[2024-03-28 16:04] VITALS: BP 138/65; TEMP 98.1; O2SAT 97
[2024-03-28 20:00] VITALS: BP 132/60; TEMP 97.7; O2SAT 96
[2024-03-29] VITALS: BP 140/60; TEMP 97.8; O2SAT 97
[2024-03-29 08:00] VITALS: BP 142/64; TEMP 98.8; O2SAT 99
[2024-03-29] MEDS: TRIAMCINOLONE ACETONIDE 0.1% CR 15 GM TUBE TP SCH (11:08)
[2024-03-29 12:00] VITALS: BP 133/64; TEMP 97.7; O2SAT 99
== END 2024-03-29 16:45 | DRG 643 ==
LOC: ER 18:04 → MED 21:48 → TELE 22:13 → MED 03-27 15:06 → TELE 03-27 17:38
PROVIDERS: ATTEND Internal Medicine
DX: E27.40 Unspecified adrenocortical insufficiency (principal); N17.0 Acute kidney failure with tubular necrosis; N18.4 Chronic kidney disease, stage 4 (severe); R53.1 Weakness; E03.9 Hypothyroidism, unspecified; I25.10 Atherosclerotic heart disease of native coronary artery without angina pectoris; D53.9 Nutritional anemia, unspecified; Z86.718 Personal history of other venous thrombosis and embolism; Z85.828 Personal history of other malignant neoplasm of skin; Z79.899 Other long term (current) drug therapy; Z79.01 Long term (current) use of anticoagulants; M89.8X9 Other specified disorders of bone, unspecified site; Z79.52 Long term (current) use of systemic steroids; Z90.49 Acquired absence of other specified parts of digestive tract; F39 Unspecified mood [affective] disorder; I12.9 Hypertensive chronic kidney disease with stage 1 through stage 4 chronic kidney disease, or unspecified chronic kidney disease; R74.8 Abnormal levels of other serum enzymes
CPT/HCPCS: 36415; 71045-TC; 76770-TC; 80048-TC; 80053-TC; 80076-TC; 81001; 82570-TC; 82962-TC; 83735-TC; 83880; 84100-TC; 84300-TC; 84439-TC; 84443-TC; 84484-TC; 85025-TC; 85730-TC; 93307-TC; 97110-TC; 97530-TC; G0378; J1720; J1940; J2470; J7040; J7512

== ENCOUNTER 2024-07-30 13:14 | Inpatient (IN) | payer MEDICARE, OTHER ==
[~2024-07-30] VITALS: Ht 182.9 cm; Wt 74.4 kg
[~2024-07-30 13:14] MED LIST changes: +ARIP15TA3 PO; +ASPI1TAB2 PO; +DIVA-76 PO; -FERR325T23 PO; +GABA100C PO; -IRBE150T28 PO; +LEVO75TA PO; +LISI10TA29 PO; -OMEP20CA15 PO; +POTA10CA43 PO; -PRED1TAB PO; +PRED5TAB48 PO; +RISP0.5T5 PO
[2024-07-30 14:05] LABS: HEMOGLOBIN 9.6 g/dL (13.5-17.5); MEAN CORPUSCULAR HGB CONC 33 g/dl (31.0-36.0); NEUTROPHILS % (AUTO) 75.7 % (43.0-81.0)
[2024-07-30] MEDS ORDERED: ONDANSETRON HCL/PF 4 MG/2 ML VIAL ONE (14:06)
[2024-07-30] MEDS: IV NS 0.9% 1,000 ML BAG IV ONE (14:14)
[2024-07-30] MEDS: ONDANSETRON HCL/PF 4 MG/2 ML VIAL IVP ONE (14:15)
[2024-07-30 14:18] LABS: BASOPHILS % (AUTO) 0.3 % (0.0-2.0); EOSINOPHILS % (AUTO) 0.2 % (0.0-6.0); HEMATOCRIT 29 % (39-51); LYMPHOCYTES # (AUTO) 1.1 K/uL (0.8-4.8); LYMPHOCYTES % (AUTO) 9.7 % (20.0-44.0); MEAN CORPUSCULAR HEMOGLOBIN 40 PG (26.0-33.0); MEAN CORPUSCULAR VOLUME 120 fL (80-96); MONOCYTES # (AUTO) 1.5 K/uL (0.1-1.30); MONOCYTES % (AUTO) 14.1 % (2.0-12.0); NEUTROPHILS # (AUTO) 8.3 K/uL (1.8-8.9); PLATELET COUNT (AUTO) 78 K/uL (150-450); RED BLOOD CELL COUNT(AUTO) 2.41 MIL/uL (4.5-6.0); RED CELL DISTRIBUTION WIDTH 15.3 % (11.5-15.0); WHITE BLOOD COUNT (AUTO) 10.9 K/uL (4.3-11.0)
[2024-07-30 14:24] LABS: ALBUMIN 2.3 g/dL (3.4-5.0); BILIRUBIN,DIRECT 0.2 mg/dL (0.0-0.2); BILIRUBIN,TOTAL 0.7 mg/dL (0.2-1.0); CREATININE 2.5 mg/dL (0.6-1.3); INR 1.18 (0.91-1.10); PARTIAL THROMBOPLASTIN TIME 32.8 SEC (24.3-34.3); POTASSIUM 4.5 mmol/L (3.5-5.1); PROTHROMBIN TIME 12.4 SECS (9.2-11.1); TOTAL PROTEIN, SERUM 7.1 g/dL (6.4-8.2)
[2024-07-30 15:05] LABS: BAND % (MANUAL) 1 % (0.0-5.0); BASOPHILS % (MANUAL) 0 % (0.0-2.0); EOSINOPHILS % (MANUAL) 1 % (0-4); LYMPHOCYTES % (MANUAL) 8 % (16-48); MONOCYTES % (MANUAL) 15 % (0-11.0); NEUTROPHILS % (MANUAL) 75 (42-76)
[2024-07-30 15:06] LABS: ANISOCYTOSIS 1+; PLATELET ESTIMATE DECREASED
[2024-07-30] MEDS ORDERED: APIX5TAB PO (15:26)
[2024-07-30] MEDS ORDERED: FERR325T23 PO (15:26)
[2024-07-30] MEDS ORDERED: IRBE150T28 PO (15:26)
[2024-07-30] MEDS ORDERED: PRED5TAB PO (15:26)
[2024-07-30] MEDS ORDERED: LOPERAMIDE HCL (2 MG CAP) 2 MG CAPSULE PO PRN (18:00)
[2024-07-30] MEDS ORDERED: MORPHINE SULFATE INJ 2 MG/ML DISP.SYRIN ONE (18:29)
[2024-07-30] MEDS: MORPHINE SULFATE INJ 2 MG/ML DISP.SYRIN IV PRN (18:37)
[2024-07-30 20:00] VITALS: BP 111/54; TEMP 98.4; O2SAT 96
[2024-07-30] MEDS: IV D5/0.45 NACL 1,000 ML IV SCH (22:52)
[2024-07-31] VITALS: BP 114/69; TEMP 98.2; O2SAT 96
[2024-07-31 01:35] VITALS: BP 114/69; TEMP 98.2; O2SAT 96
[2024-07-31 07:31] LABS: BASOPHILS % (AUTO) 0.2 % (0.0-2.0); EOSINOPHILS % (AUTO) 0.2 % (0.0-6.0); HEMATOCRIT 29 % (39-51); HEMOGLOBIN 9.6 g/dL (13.5-17.5); LYMPHOCYTES # (AUTO) 0.9 K/uL (0.8-4.8); LYMPHOCYTES % (AUTO) 9.7 % (20.0-44.0); MEAN CORPUSCULAR HEMOGLOBIN 40 PG (26.0-33.0); MEAN CORPUSCULAR HGB CONC 34 g/dl (31.0-36.0); MEAN CORPUSCULAR VOLUME 120 fL (80-96); MONOCYTES # (AUTO) 1.1 K/uL (0.1-1.30); MONOCYTES % (AUTO) 12.3 % (2.0-12.0); NEUTROPHILS # (AUTO) 7.1 K/uL (1.8-8.9); NEUTROPHILS % (AUTO) 77.6 % (43.0-81.0); PLATELET COUNT (AUTO) 72 K/uL (150-450); RED BLOOD CELL COUNT(AUTO) 2.37 MIL/uL (4.5-6.0); WHITE BLOOD COUNT (AUTO) 9.2 K/uL (4.3-11.0)
[2024-07-31 07:55] LABS: ALBUMIN 2.1 g/dL (3.4-5.0); BILIRUBIN,TOTAL 0.6 mg/dL (0.2-1.0); CALCIUM, SERUM 7.6 mg/dL (8.5-10.1); CREATININE 2.5 mg/dL (0.6-1.3); MAGNESIUM 1.5 mg/dL (1.8-2.4); POTASSIUM 4.3 mmol/L (3.5-5.1); TOTAL PROTEIN, SERUM 6.6 g/dL (6.4-8.2)
[2024-07-31 08:00] VITALS: BP 134/59; TEMP 99.3; O2SAT 92
[2024-07-31] MEDS: FERROUS SULFATE (325 MG) 325 MG/TAB TABLET PO SCH (09:45)
[2024-07-31] MEDS: LOSARTAN POTASSIUM 50 MG TABLET PO SCH (09:45)
[2024-07-31] MEDS: predniSONE 5 MG TABLET PO SCH (09:46)
[2024-07-31] MEDS: APIXABAN 5 MG TABLET PO SCH (09:47)
[2024-07-31 10:49] LABS: LYMPHOCYTES % (MANUAL) 10 % (16-48); MONOCYTES % (MANUAL) 12 % (0-11.0); NEUTROPHILS % (MANUAL) 78 (42-76); PLATELET ESTIMATE DECREASED
[2024-07-31 10:50] LABS: ANISOCYTOSIS 1+; HYPOCHROMASIA 1+
[2024-07-31] MEDS: MAGNESIUM OXIDE 400 MG TABLET PO ONE (11:52)
[2024-07-31 16:06] VITALS: BP 118/55; TEMP 98.2; O2SAT 94
[2024-07-31 20:00] VITALS: BP 107/50; TEMP 98.1; O2SAT 95
[2024-08-01] MEDS: IV D5/0.45 NACL 1,000 ML IV PRN (03:03)
[2024-08-01 07:00] VITALS: BP 102/53; TEMP 98.2; O2SAT 97
[2024-08-01 12:45] LABS: ALBUMIN 1.8 g/dL (3.4-5.0); BILIRUBIN,TOTAL 0.3 mg/dL (0.2-1.0); CALCIUM, SERUM 7.2 mg/dL (8.5-10.1); CREATININE 2.6 mg/dL (0.6-1.3); POTASSIUM 4.1 mmol/L (3.5-5.1); TOTAL PROTEIN, SERUM 6.2 g/dL (6.4-8.2)
[2024-08-01 13:00] LABS: AMPHETAMINE, URINE NEGATIVE (NEGATIVE); BARBITURATE, URINE NEGATIVE (NEGATIVE); BENZODIAZEPINE, URINE NEGATIVE (NEGATIVE); CANNABINOID, URINE NEGATIVE (NEGATIVE); COCCAINE, URINE NEGATIVE (NEGATIVE); PHENCYCLIDINE SCREEN,URINE NEGATIVE (NEGATIVE)
[2024-08-01 13:01] LABS: OPIATE, URINE POSITIVE (NEGATIVE)
[2024-08-01 13:24] LABS: APPEARANCE,URINE CLOUDY (CLEAR); BILIRUBIN,URINE 1+ (NEGATIVE); BLOOD, URINE TRACE-INTA Ery/uL (NEGATIVE); COLOR,URINE YELLOW (YELLOW); KETONES,URINE TRACE mg/dL (NEGATIVE); LEUKOCYTE ESTERASE ,URINE NEGATIVE (NEGATIVE); NITRITE, URINE NEGATIVE (NEGATIVE); PH,URINE 5.5 (5.0-8.0); PROTEIN,URINE 1+ mg/dl (NEGATIVE); UGLUCOSE NEGATIVE (NEGATIVE); UROBILINOGEN,URINE 0.2 EU/dL (0.2)
[2024-08-01 14:24] LABS: URINE AMORPHOUS URATE Many /HPF (None Seen)
[2024-08-01 14:25] LABS: ADD URINE CULTURE NO; BACTERIA,URINE Few /HPF (None Seen); RBC,URINE 0-2 /HPF (0-2); SQUAMOUS EPITHELIAL CELL,UR None Seen /HPF (None Seen)
[2024-08-01 16:00] VITALS: BP 129/66; TEMP 97.5; O2SAT 96
[2024-08-01 20:35] VITALS: BP 108/61; TEMP 98.2; O2SAT 96
[2024-08-01 21:18] VITALS: BP 108/61; TEMP 98.2; O2SAT 98
[2024-08-02 07:05] LABS: ALBUMIN 1.8 g/dL (3.4-5.0); BASOPHILS % (AUTO) 0.4 % (0.0-2.0); BILIRUBIN,TOTAL 0.3 mg/dL (0.2-1.0); CALCIUM, SERUM 7.7 mg/dL (8.5-10.1); CREATININE 2.4 mg/dL (0.6-1.3); EOSINOPHILS % (AUTO) 0.3 % (0.0-6.0); HEMATOCRIT 26 % (39-51); LYMPHOCYTES # (AUTO) 0.8 K/uL (0.8-4.8); LYMPHOCYTES % (AUTO) 9.8 % (20.0-44.0); MEAN CORPUSCULAR HEMOGLOBIN 40 PG (26.0-33.0); MEAN CORPUSCULAR HGB CONC 34 g/dl (31.0-36.0); MEAN CORPUSCULAR VOLUME 118 fL (80-96); MONOCYTES # (AUTO) 0.9 K/uL (0.1-1.30); MONOCYTES % (AUTO) 11.5 % (2.0-12.0); NEUTROPHILS # (AUTO) 6.3 K/uL (1.8-8.9); PLATELET COUNT (AUTO) 62 K/uL (150-450); POTASSIUM 4.2 mmol/L (3.5-5.1); RED BLOOD CELL COUNT(AUTO) 2.23 MIL/uL (4.5-6.0); RED CELL DISTRIBUTION WIDTH 14.9 % (11.5-15.0); TOTAL PROTEIN, SERUM 6.4 g/dL (6.4-8.2); WHITE BLOOD COUNT (AUTO) 8.1 K/uL (4.3-11.0)
[2024-08-02 07:33] LABS: MAGNESIUM 2.2 mg/dL (1.8-2.4); PHOSPHORUS 4.2 mg/dL (2.5-4.9)
[2024-08-02 08:00] VITALS: BP 136/60; TEMP 99.5; O2SAT 97
[2024-08-02 12:09] LABS: ANISOCYTOSIS 1+; LYMPHOCYTES % (MANUAL) 10 % (16-48); MONOCYTES % (MANUAL) 9 % (0-11.0); MYELOCYTES % 1 % (0-0); NEUTROPHILS % (MANUAL) 80 (42-76); PLATELET ESTIMATE DECREASED
[2024-08-02 12:10] LABS: OVALOCYTES 1+
[2024-08-02 16:00] VITALS: BP 129/60; TEMP 98.2; O2SAT 97
[2024-08-02 20:00] VITALS: BP 124/60; TEMP 98.1; O2SAT 97
[2024-08-03 07:00] VITALS: BP 129/73; TEMP 98.1; O2SAT 95
[2024-08-03 11:24] LABS: CALCIUM, SERUM 7.5 mg/dL (8.5-10.1); CREATININE 3.6 mg/dL (0.6-1.3); POTASSIUM 4.6 mmol/L (3.5-5.1)
[2024-08-03 11:29] LABS: ALBUMIN 1.8 g/dL (3.4-5.0); BILIRUBIN,TOTAL 0.4 mg/dL (0.2-1.0); TOTAL PROTEIN, SERUM 6.6 g/dL (6.4-8.2)
[2024-08-03 15:02] LABS: APPEARANCE,URINE CLOUDY (CLEAR); BILIRUBIN,URINE NEGATIVE (NEGATIVE); BLOOD, URINE 1+ Ery/uL (NEGATIVE); COLOR,URINE YELLOW (YELLOW); KETONES,URINE NEGATIVE (NEGATIVE); LEUKOCYTE ESTERASE ,URINE NEGATIVE (NEGATIVE); NITRITE, URINE NEGATIVE (NEGATIVE); PH,URINE 5.5 (5.0-8.0); PROTEIN,URINE 1+ mg/dl (NEGATIVE); UGLUCOSE NEGATIVE (NEGATIVE); UROBILINOGEN,URINE 0.2 EU/dL (0.2)
[2024-08-03 15:25] LABS: CREATININE, URINE 160.6 MG/DL (30.0-125.0); URINE TOTAL PROTEIN 128.8 mg/dL (0-11.9)
[2024-08-03 15:59] LABS: EOSINOPHIL,URINE None Seen
[2024-08-03 16:00] VITALS: BP 119/58; TEMP 98.2; O2SAT 98
[2024-08-03 16:00] LABS: URINE AMORPHOUS URATE Many /HPF (None Seen)
[2024-08-03 16:01] LABS: ADD URINE CULTURE NO; BACTERIA,URINE Few /HPF (None Seen); SQUAMOUS EPITHELIAL CELL,UR None Seen /HPF (None Seen); WBC,URINE 0-2 /HPF (0-3)
[2024-08-03 20:00] VITALS: BP 128/81; TEMP 97.4; O2SAT 98
[2024-08-03] MEDS ORDERED: DIPHENHYDRAMINE HCL 12.5 MG/5 ML UDC PO ONE (23:00)
[2024-08-03] MEDS: DIPHENHYDRAMINE HCL 12.5 MG/5 ML UDC PO ONE (23:09)
[2024-08-04 06:30] LABS: BILIRUBIN,TOTAL 0.4 mg/dL (0.2-1.0); CALCIUM, SERUM 7.9 mg/dL (8.5-10.1); CREATININE 4.2 mg/dL (0.6-1.3); MAGNESIUM 1.6 mg/dL (1.8-2.4); PHOSPHORUS 6.3 mg/dL (2.5-4.9); POTASSIUM 4.8 mmol/L (3.5-5.1)
[2024-08-04 06:45] LABS: BASOPHILS # (AUTO) 0.1 K/uL (0.0-0.2); BASOPHILS % (AUTO) 0.5 % (0.0-2.0); EOSINOPHILS % (AUTO) 0.2 % (0.0-6.0); HEMATOCRIT 28 % (39-51); HEMOGLOBIN 9.3 g/dL (13.5-17.5); LYMPHOCYTES # (AUTO) 0.7 K/uL (0.8-4.8); LYMPHOCYTES % (AUTO) 6.3 % (20.0-44.0); MEAN CORPUSCULAR HEMOGLOBIN 40 PG (26.0-33.0); MEAN CORPUSCULAR HGB CONC 34 g/dl (31.0-36.0); MEAN CORPUSCULAR VOLUME 120 fL (80-96); MONOCYTES # (AUTO) 0.9 K/uL (0.1-1.30); MONOCYTES % (AUTO) 8.2 % (2.0-12.0); NEUTROPHILS # (AUTO) 9.4 K/uL (1.8-8.9); NEUTROPHILS % (AUTO) 84.8 % (43.0-81.0); PLATELET COUNT (AUTO) 66 K/uL (150-450); RED BLOOD CELL COUNT(AUTO) 2.31 MIL/uL (4.5-6.0); RED CELL DISTRIBUTION WIDTH 14.6 % (11.5-15.0); WHITE BLOOD COUNT (AUTO) 11.1 K/uL (4.3-11.0)
[2024-08-04 08:25] VITALS: BP 126/52; TEMP 99.1; O2SAT 95
[2024-08-04 10:38] LABS: LYMPHOCYTES % (MANUAL) 6 % (16-48); MONOCYTES % (MANUAL) 6 % (0-11.0); NEUTROPHILS % (MANUAL) 88 (42-76); PLATELET ESTIMATE DECREASED
[2024-08-04 10:39] LABS: ANISOCYTOSIS 1+
[2024-08-04] MEDS: IV NS 0.9% 1,000 ML IV PRN (13:20)
[2024-08-04 13:33] LABS: CALCIUM, SERUM 7.3 mg/dL (8.5-10.1); CREATININE 4.8 mg/dL (0.6-1.3)
[2024-08-04 15:59] VITALS: BP 112/54; TEMP 98.9; O2SAT 94
[2024-08-04 20:00] VITALS: BP 126/49; TEMP 97.9; O2SAT 97
[2024-08-05] VITALS (10 sets, daily range): BP systolic 130–137; BP diastolic 63–75; TEMP 97.2–98.2; O2SAT 94–100
[2024-08-05] MEDS: ONDANSETRON HCL/PF 4 MG/2 ML VIAL IVP PRN (06:48)
[2024-08-05 07:25] LABS: BASOPHILS % (AUTO) 0.2 % (0.0-2.0); EOSINOPHILS # (AUTO) 0.1 K/uL (0.0-0.7); EOSINOPHILS % (AUTO) 0.4 % (0.0-6.0); HEMATOCRIT 27 % (39-51); HEMOGLOBIN 8.8 g/dL (13.5-17.5); LYMPHOCYTES # (AUTO) 0.6 K/uL (0.8-4.8); MEAN CORPUSCULAR HEMOGLOBIN 40 PG (26.0-33.0); MEAN CORPUSCULAR HGB CONC 33 g/dl (31.0-36.0); MEAN CORPUSCULAR VOLUME 122 fL (80-96); MONOCYTES % (AUTO) 7.7 % (2.0-12.0); NEUTROPHILS # (AUTO) 10.9 K/uL (1.8-8.9); NEUTROPHILS % (AUTO) 86.7 % (43.0-81.0); PLATELET COUNT (AUTO) 69 K/uL (150-450); RED BLOOD CELL COUNT(AUTO) 2.22 MIL/uL (4.5-6.0); RED CELL DISTRIBUTION WIDTH 14.9 % (11.5-15.0); WHITE BLOOD COUNT (AUTO) 12.5 K/uL (4.3-11.0)
[2024-08-05 07:30] LABS: CALCIUM, SERUM 7.7 mg/dL (8.5-10.1); CREATININE 4.7 mg/dL (0.6-1.3); POTASSIUM 4.7 mmol/L (3.5-5.1)
[2024-08-05 07:36] LABS: BILIRUBIN,TOTAL 0.3 mg/dL (0.2-1.0); MAGNESIUM 1.7 mg/dL (1.8-2.4); PHOSPHORUS 7.1 mg/dL (2.5-4.9); TOTAL PROTEIN, SERUM 7.3 g/dL (6.4-8.2)
[2024-08-05] MEDS: PANTOPRAZOLE 40 MG TABLET.DR PO SCH (08:30)
[2024-08-05] MEDS: FAMOTIDINE (20 MG) 20 MG TABLET PO SCH (09:07)
[2024-08-05 10:31] LABS: LYMPHOCYTES % (MANUAL) 7 % (16-48)
[2024-08-05 10:32] LABS: ANISOCYTOSIS 2+; MONOCYTES % (MANUAL) 8 % (0-11.0); NEUTROPHILS % (MANUAL) 85 (42-76); PLATELET ESTIMATE DECREASED
[2024-08-05 12:04] LABS: THYROID STIMULATING HORMONE 6.54 uIU/mL (0.358-3.74)
[2024-08-05] MEDS ORDERED: CEFTRIAXONE 1 G in IV D5W 50 ML IV SCH (13:30)
[2024-08-05] MEDS: CEFEPIME 1 GM in IV D5W 50 ML IV SCH (14:25)
[2024-08-05] MEDS: IPRATROPIUM NEB FS 0.5 MG/2.5 ML AMPUL.NEB NEB SCH (14:33)
[2024-08-05] MEDS: ALBUTEROL HALF STRENGTH 1.25 MG/3 ML VIAL.NEB NEB SCH (14:33)
[2024-08-05] MEDS: ACETYLCYSTEINE 10% SOLN 400 MG/4 ML VIAL NEB SCH (14:33)
[2024-08-05] MEDS: MAG HYDROX/AL HYDROX/SIMETH 30 ML UDC PO PRN (22:08)
[2024-08-06] VITALS (29 sets, daily range): BP systolic 108–165; BP diastolic 56–106; TEMP 97.4–99.7; O2SAT 94–100
[2024-08-06 06:06] LABS: HEPATITIS B CORE AB, TOTAL Negative (Negative); HEPATITIS B SURFACE AB Non Reactive (.)
[2024-08-06 07:23] LABS: BASOPHILS % (AUTO) 0.4 % (0.0-2.0); EOSINOPHILS % (AUTO) 0.4 % (0.0-6.0); HEMATOCRIT 24 % (39-51); HEMOGLOBIN 7.9 g/dL (13.5-17.5); LYMPHOCYTES # (AUTO) 0.5 K/uL (0.8-4.8); LYMPHOCYTES % (AUTO) 5.2 % (20.0-44.0); MEAN CORPUSCULAR HEMOGLOBIN 40 PG (26.0-33.0); MEAN CORPUSCULAR HGB CONC 33 g/dl (31.0-36.0); MEAN CORPUSCULAR VOLUME 120 fL (80-96); MONOCYTES # (AUTO) 0.6 K/uL (0.1-1.30); NEUTROPHILS # (AUTO) 8.2 K/uL (1.8-8.9); PLATELET COUNT (AUTO) 57 K/uL (150-450); RED CELL DISTRIBUTION WIDTH 14.4 % (11.5-15.0); WHITE BLOOD COUNT (AUTO) 9.3 K/uL (4.3-11.0)
[2024-08-06 07:26] LABS: RED BLOOD CELL COUNT(AUTO) 1.98 MIL/uL (4.5-6.0)
[2024-08-06 07:43] LABS: ALBUMIN 1.9 g/dL (3.4-5.0); BILIRUBIN,TOTAL 0.4 mg/dL (0.2-1.0); CALCIUM, SERUM 7.5 mg/dL (8.5-10.1); CREATININE 4.6 mg/dL (0.6-1.3); MAGNESIUM 1.6 mg/dL (1.8-2.4); PHOSPHORUS 7.6 mg/dL (2.5-4.9); POTASSIUM 4.9 mmol/L (3.5-5.1); TOTAL PROTEIN, SERUM 6.9 g/dL (6.4-8.2)
[2024-08-06] MEDS: MORPHINE SULFATE INJ 2 MG/ML DISP.SYRIN IV ONE (08:11)
[2024-08-06] MEDS: diphenhydrAMINE HCL ELIX 25 MG/10 ML UDC ONE (08:43)
[2024-08-06 10:57] LABS: BASOPHILS % (MANUAL) 0 % (0.0-2.0); EOSINOPHILS % (MANUAL) 0 % (0-4); LYMPHOCYTES % (MANUAL) 9 % (16-48); MONOCYTES % (MANUAL) 6 % (0-11.0); NEUTROPHILS % (MANUAL) 85 (42-76); PLATELET ESTIMATE DECREASED
[2024-08-06 11:03] LABS: ABG BASE EXCESS -11.5 mmol/L (-2.0-3.0); ABG OXYGEN SATURATION 95.7 % (94.0-98.0); ABG PH 7.314 (7.350-7.450); ABG PO2 94.2 mmHg (83.0-108.0); ABG TOTAL HEMOGLOBIN 9.6 G/dL (13.5-17.5); COHb 0.2 % (0.5-1.5); MetHb 0.2 % (0.0-1.5); O2Hb 95.3 % (94.0-97.0); SITE, ABG LEFT RADIAL
[2024-08-06] MEDS: methylPREDNISolone SOD SUCC 125 MG/2ML VIAL IV SCH (13:23)
[2024-08-06] MEDS: Sodium Bicarbonate 100 MEQ in IV D5W 1,000 ML IV SCH (13:26)
[2024-08-06] MEDS ORDERED: ANESTHESIA TRAY IN PYXIS 1 EA TRAY MC ONE ×2 (16:51→19:45)
[2024-08-06] MEDS ORDERED: IOHEXOL 50 ML IV ONE (16:51)
[2024-08-06] MEDS ORDERED: LIDOCAINE HCL/MPF 1% 30 ML VIAL IJ ONE (16:51)
[2024-08-06] MEDS ORDERED: FENTANYL PF 100MCG/2ML AMPUL ONE (16:53)
[2024-08-06] MEDS ORDERED: HEPARIN SODIUM, PORCINE 1,000 UNIT/ML VIAL ONE (17:55)
[2024-08-07] VITALS (28 sets, daily range): BP systolic 107–153; BP diastolic 58–78; TEMP 97.7–98.2; O2SAT 96–100
[2024-08-07 05:18] LABS: ALANINE AMINOTRANSFERASE 20 U/L (12-78); ALBUMIN 1.7 g/dL (3.4-5.0); ALKALINE PHOSPHATASE 55 U/L (46-116); ASPARTATE AMINOTRANSFERASE 13 U/L (15-37); BILIRUBIN,TOTAL 0.3 mg/dL (0.2-1.0); CALCIUM, SERUM 7.3 mg/dL (8.5-10.1); CARBON DIOXIDE 21 mmol/L (21-32); CHLORIDE 110 mmol/L (98-107); CREATININE 4.4 mg/dL (0.6-1.3); GLUCOSE 135 mg/dL (74-106); POTASSIUM 5.7 mmol/L (3.5-5.1); SODIUM SERUM 142 mmol/L (136-145); TOTAL PROTEIN, SERUM 6.5 g/dL (6.4-8.2)
[2024-08-07 05:20] LABS: UREA NITROGEN, BLOOD 83 mg/dL (7-18)
[2024-08-07 08:06] LABS: COMPLEMENT C3, SERUM 126 mg/dL (82-167); COMPLEMENT C4, SERUM 24 mg/dL (12-38)
[2024-08-07] MEDS ORDERED: METFORMIN 500 MG TABLET PO SCH (09:00)
[2024-08-07 11:09] LABS: *ANA ANTI-CENTROMERE B AB <0.2 AI (0.0-0.9); *ANA ANTI-DNA(DS) AB, QN 1 IU/mL (0-9); *ANA ANTI-JO-1 <0.2 AI (0.0-0.9); *ANA ANTICHROMATIN ANTIBODY <0.2 AI (0.0-0.9); *ANA RNP ANTIBODIES <0.2 AI (0.0-0.9); *ANA SJOGREN'S ANTI-SS-A <0.2 AI (0.0-0.9); *ANA SJOGREN'S ANTI-SS-B <0.2 AI (0.0-0.9); *ANAANTI-SCLERODERMA-70 AB <0.2 AI (0.0-0.9); *ANASMITH AB <0.2 AI (0.0-0.9)
[2024-08-08] VITALS (16 sets, daily range): BP systolic 135–150; BP diastolic 54–69; TEMP 97.5–97.9; O2SAT 95–100
[2024-08-08] MEDS ORDERED: DIPHENHYDRAMINE HCL 12.5 MG/5 ML UDC PO PRN
[2024-08-08] MEDS ORDERED: DIPHENHYDRAMINE HCL 12.5 MG/5 ML UDC PO ONE
[2024-08-08] MEDS: diphenhydrAMINE HCL 25 MG CAPSULE PO ONE (00:33)
[2024-08-08 06:14] LABS: HEMATOCRIT 22 % (39-51); HEMOGLOBIN 7.5 g/dL (13.5-17.5); LYMPHOCYTES # (AUTO) 0.3 K/uL (0.8-4.8); LYMPHOCYTES % (AUTO) 4.3 % (20.0-44.0); MEAN CORPUSCULAR HEMOGLOBIN 40 PG (26.0-33.0); MEAN CORPUSCULAR HGB CONC 34 g/dl (31.0-36.0); MEAN CORPUSCULAR VOLUME 117 fL (80-96); MONOCYTES # (AUTO) 0.3 K/uL (0.1-1.30); MONOCYTES % (AUTO) 4.1 % (2.0-12.0); NEUTROPHILS # (AUTO) 6.9 K/uL (1.8-8.9); NEUTROPHILS % (AUTO) 91.6 % (43.0-81.0); PLATELET COUNT (AUTO) 54 K/uL (150-450); RED CELL DISTRIBUTION WIDTH 14.1 % (11.5-15.0); WHITE BLOOD COUNT (AUTO) 7.6 K/uL (4.3-11.0)
[2024-08-08 06:22] LABS: RED BLOOD CELL COUNT(AUTO) 1.87 MIL/uL (4.5-6.0)
[2024-08-08 07:12] LABS: ALBUMIN 1.9 g/dL (3.4-5.0); BILIRUBIN,TOTAL 0.5 mg/dL (0.2-1.0); CALCIUM, SERUM 7.9 mg/dL (8.5-10.1); CREATININE 3.2 mg/dL (0.6-1.3); PHOSPHORUS 5.7 mg/dL (2.5-4.9); POTASSIUM 4.7 mmol/L (3.5-5.1); TOTAL PROTEIN, SERUM 6.7 g/dL (6.4-8.2)
[2024-08-08 07:34] LABS: MAGNESIUM 1.6 mg/dL (1.8-2.4)
[2024-08-08] MEDS: MAGNESIUM OXIDE 400 MG TABLET PO SCH (09:54)
[2024-08-08 10:05] LABS: ANISOCYTOSIS 1+; BASOPHILS % (MANUAL) 0 % (0.0-2.0); EOSINOPHILS % (MANUAL) 0 % (0-4); LYMPHOCYTES % (MANUAL) 3 % (16-48); MONOCYTES % (MANUAL) 4 % (0-11.0); NEUTROPHILS % (MANUAL) 93 (42-76); PLATELET ESTIMATE DECREASED
[2024-08-09] VITALS (17 sets, daily range): BP systolic 124–162; BP diastolic 52–78; TEMP 97.3–98.1; O2SAT 95–99
[2024-08-09] MEDS: hydrALAZINE HCL IV 20 MG VIAL IV PRN (04:57)
[2024-08-09 06:49] LABS: BASOPHILS % (AUTO) 0.1 % (0.0-2.0); HEMATOCRIT 23 % (39-51); HEMOGLOBIN 7.7 g/dL (13.5-17.5); LYMPHOCYTES # (AUTO) 0.3 K/uL (0.8-4.8); LYMPHOCYTES % (AUTO) 5.1 % (20.0-44.0); MEAN CORPUSCULAR HEMOGLOBIN 40 PG (26.0-33.0); MEAN CORPUSCULAR HGB CONC 34 g/dl (31.0-36.0); MEAN CORPUSCULAR VOLUME 117 fL (80-96); MONOCYTES # (AUTO) 0.4 K/uL (0.1-1.30); MONOCYTES % (AUTO) 6.1 % (2.0-12.0); NEUTROPHILS # (AUTO) 5.3 K/uL (1.8-8.9); NEUTROPHILS % (AUTO) 88.7 % (43.0-81.0); PLATELET COUNT (AUTO) 57 K/uL (150-450); RED CELL DISTRIBUTION WIDTH 13.7 % (11.5-15.0)
[2024-08-09 07:05] LABS: RED BLOOD CELL COUNT(AUTO) 1.94 MIL/uL (4.5-6.0)
[2024-08-09 07:21] LABS: CALCIUM, SERUM 7.4 mg/dL (8.5-10.1); CREATININE 2.7 mg/dL (0.6-1.3); POTASSIUM 4.3 mmol/L (3.5-5.1)
[2024-08-09 07:27] LABS: ALBUMIN 2.1 g/dL (3.4-5.0); BILIRUBIN,TOTAL 0.6 mg/dL (0.2-1.0); TOTAL PROTEIN, SERUM 6.8 g/dL (6.4-8.2)
[2024-08-09 09:24] LABS: MAGNESIUM 1.5 mg/dL (1.8-2.4); PHOSPHORUS 4.8 mg/dL (2.5-4.9)
[2024-08-09] MEDS: NA PHOS,M-B/NA PHOS,DI-BA 1 EA ENEMA RC ONE (21:50)
[2024-08-10] VITALS (12 sets, daily range): BP systolic 121–148; BP diastolic 53–67; TEMP 97.6–97.9; O2SAT 95–100
[2024-08-10 02:09] LABS: LYMPHOCYTES % (MANUAL) 6 % (16-48); MONOCYTES % (MANUAL) 5 % (0-11.0); NEUTROPHILS % (MANUAL) 89 (42-76); PLATELET ESTIMATE DECREASED
[2024-08-10 06:33] LABS: BILIRUBIN,TOTAL 0.6 mg/dL (0.2-1.0); CALCIUM, SERUM 7.1 mg/dL (8.5-10.1); CREATININE 2.7 mg/dL (0.6-1.3); TOTAL PROTEIN, SERUM 6.2 g/dL (6.4-8.2)
[2024-08-10] MEDS: methylPREDNISolone SOD SUCC 125 MG/2ML VIAL IV SCH (08:19)
[2024-08-11] VITALS (9 sets, daily range): BP systolic 125–140; BP diastolic 52–64; TEMP 97.5–98.2; O2SAT 94–99
[2024-08-11 08:15] LABS: CALCIUM, SERUM 7.1 mg/dL (8.5-10.1); CREATININE 2.3 mg/dL (0.6-1.3)
[2024-08-11 08:21] LABS: BASOPHILS % (AUTO) 0.1 % (0.0-2.0); BILIRUBIN,TOTAL 0.8 mg/dL (0.2-1.0); EOSINOPHILS # (AUTO) 0.1 K/uL (0.0-0.7); EOSINOPHILS % (AUTO) 1.2 % (0.0-6.0); HEMATOCRIT 23 % (39-51); HEMOGLOBIN 7.9 g/dL (13.5-17.5); LYMPHOCYTES # (AUTO) 0.9 K/uL (0.8-4.8); LYMPHOCYTES % (AUTO) 18.2 % (20.0-44.0); MEAN CORPUSCULAR HEMOGLOBIN 41 PG (26.0-33.0); MEAN CORPUSCULAR HGB CONC 34 g/dl (31.0-36.0); MEAN CORPUSCULAR VOLUME 118 fL (80-96); MONOCYTES # (AUTO) 0.4 K/uL (0.1-1.30); MONOCYTES % (AUTO) 7.6 % (2.0-12.0); NEUTROPHILS # (AUTO) 3.8 K/uL (1.8-8.9); NEUTROPHILS % (AUTO) 72.9 % (43.0-81.0); PLATELET COUNT (AUTO) 53 K/uL (150-450); RED CELL DISTRIBUTION WIDTH 14.2 % (11.5-15.0); TOTAL PROTEIN, SERUM 6.2 g/dL (6.4-8.2); WHITE BLOOD COUNT (AUTO) 5.2 K/uL (4.3-11.0)
[2024-08-11 08:22] LABS: RED BLOOD CELL COUNT(AUTO) 1.94 MIL/uL (4.5-6.0)
[2024-08-11 08:43] LABS: MAGNESIUM 1.4 mg/dL (1.8-2.4); PHOSPHORUS 3.9 mg/dL (2.5-4.9)
[2024-08-11] MEDS: MAGNESIUM OXIDE 400 MG TABLET PO ONE (10:31)
[2024-08-11 11:07] LABS: ANISOCYTOSIS 1+; BAND % (MANUAL) 2 % (0.0-5.0); EOSINOPHILS % (MANUAL) 1 % (0-4); HYPOCHROMASIA 1+; LYMPHOCYTES % (MANUAL) 18 % (16-48); MONOCYTES % (MANUAL) 9 % (0-11.0); NEUTROPHILS % (MANUAL) 70 (42-76); PLATELET ESTIMATE DECREASED
[2024-08-12 06:25] LABS: CALCIUM, SERUM 7.4 mg/dL (8.5-10.1); CREATININE 1.9 mg/dL (0.6-1.3); MAGNESIUM 1.3 mg/dL (1.8-2.4); POTASSIUM 3.8 mmol/L (3.5-5.1)
[2024-08-12 07:00] VITALS: BP_SYST 151; BP_DIAS 66; BP_DIAS 93; TEMP 97.7; TEMP 98.6; O2SAT 91; O2SAT 97
[2024-08-12] MEDS: MAGNESIUM OXIDE 400 MG TABLET PO ONE (10:56)
[2024-08-12 16:00] VITALS: BP 130/60; TEMP 97.8; O2SAT 95
[2024-08-12] MEDS: ACETAMINOPHEN 325 MG TABLET PO PRN (17:20)
== END 2024-08-12 17:30 | DRG 682 ==
LOC: ER 13:25 → MED 20:24 → TELE 08-05 08:48 → ICU 08-06 08:36 → TELE 08-07 15:03 → MED 08-09 11:21
PROVIDERS: ADMIT Internal Medicine; ATTEND Internal Medicine
PROC: 06H03DZ Insertion of Intraluminal Device into Inferior Vena Cava, Percutaneous Approach (ICD-10-PCS; principal; 2024-08-06)
PROC: 06H033Z Insertion of Infusion Device into Inferior Vena Cava, Percutaneous Approach (ICD-10-PCS; 2024-08-06)
PROC: B519YZA Fluoroscopy of Inferior Vena Cava using Other Contrast, Guidance (ICD-10-PCS; 2024-08-06)
PROC: 5A1D70Z Performance of Urinary Filtration, Intermittent, Less than 6 Hours Per Day (ICD-10-PCS; 2024-08-07)
DX: N17.0 Acute kidney failure with tubular necrosis (principal); G92.8 Other toxic encephalopathy; J96.91 Respiratory failure, unspecified with hypoxia; J15.9 Unspecified bacterial pneumonia; E46 Unspecified protein-calorie malnutrition; E87.20 Acidosis, unspecified; J90 Pleural effusion, not elsewhere classified; D68.9 Coagulation defect, unspecified; R65.10 Systemic inflammatory response syndrome (SIRS) of non-infectious origin without acute organ dysfunction; N18.4 Chronic kidney disease, stage 4 (severe); R62.7 Adult failure to thrive; I48.91 Unspecified atrial fibrillation; D69.6 Thrombocytopenia, unspecified; I12.9 Hypertensive chronic kidney disease with stage 1 through stage 4 chronic kidney disease, or unspecified chronic kidney disease; E83.42 Hypomagnesemia; E87.5 Hyperkalemia; E88.09 Other disorders of plasma-protein metabolism, not elsewhere classified; D53.9 Nutritional anemia, unspecified; Z79.01 Long term (current) use of anticoagulants; K20.90 Esophagitis, unspecified without bleeding; E86.9 Volume depletion, unspecified; D63.1 Anemia in chronic kidney disease; F39 Unspecified mood [affective] disorder; E87.70 Fluid overload, unspecified; I25.10 Atherosclerotic heart disease of native coronary artery without angina pectoris; Z86.718 Personal history of other venous thrombosis and embolism; Z68.22 Body mass index [BMI] 22.0-22.9, adult; Z90.49 Acquired absence of other specified parts of digestive tract
CPT/HCPCS: 36415; 36600; 71045-TC; 71250-TC; 74018; 76770-TC; 80048-TC; 80053-TC; 80076-TC; 81001; 82570-TC; 82728-TC; 82803-TC; 82962-TC; 83540-TC; 83605-TC; 83690-TC; 83735-TC; 84100-TC; 84300-TC; 84439-TC; 84443-TC; 84484-TC; 85025-TC; 85652-TC; 85730-TC; 86225; 86235; 86704; 86705; 86706; 86803; 86850-TC; 87340; 90935-TC; 93307-TC; 93970-TC; 94760-TC; 94762-TC; 94799-TC; 97110-TC; 97112-TC; 97116-TC; 97164; 97530-TC; 97535-TC; A4223; A6253; A6403; C1752; C1769; C1880; G0378; G0480; J0360; J0692; J0696; J1644; J2270; J2405; J2704; J2919; J3010; J3490; J7030; J7050; J7060; J7070; J7512; Q0163; Q9967